=== PATIENT | female | born 1945 | race Caucasian/White ===

== ENCOUNTER 2017-09-04 10:40 | Inpatient (IN) | payer MEDICARE ==
[~2017-09-04] VITALS: Ht 185.4 cm; Wt 92.0 kg
[~2017-09-04 10:40] MED LIST: ALBU8.5H8 IH; BUDE10.2 IH; CYAN100T PO; DIPH25TA18 PO; DIVA-76 PO; FOLI1TAB15 PO; FURO20TA4 PO; METO-408 PO; POTA10CA44 PO; WARF-57 PO; WARF2.5T85 PO
[2017-09-04 11:34] LABS: APPEARANCE,URINE Clear (CLEAR); BILIRUBIN,URINE Negative (NEGATIVE); COLOR,URINE Yellow (YELLOW); GLUCOSE, URINE (UA) Negative (NEGATIVE); KETONES,URINE Negative (NEGATIVE); LEUKOCYTE ESTERASE ,URINE Large (NEGATIVE); NITRATE,URINE Negative (NEGATIVE); OCCULT BLOOD,URINE Trace (NEGATIVE); PH,URINE 7.5 (5.0-8.0); PROTEIN,URINE Negative (NEGATIVE); UROBILINOGEN,URINE 0.2 mg/dL (0.2-1.0)
[2017-09-04 11:40] LABS: CREATININE 1.2 mg/dL (0.5-1.5); POTASSIUM 3.5 mmol/L (3.5-5.1)
[2017-09-04 11:45] LABS: ALBUMIN 3.2 g/dL (3.5-5.0); BASOPHILS % (AUTO) 1.5 % (0.0-5.0); BILIRUBIN,TOTAL 0.8 mg/dL (0.2-1.0); HEMATOCRIT 24.4 % (36-48); LYMPHOCYTES % (AUTO) 17.9 % (21.0-51.0); MEAN CORPUSCULAR HEMOGLOBIN 22.7 pg (27.0-33.0); MEAN CORPUSCULAR HGB CONC 32.1 g/dL (32.0-36.0); MEAN CORPUSCULAR VOLUME 70.7 fL (79-99); MONOCYTES % (AUTO) 16.1 % (3.0-13.0); NEUTROPHILS % (AUTO) 62.5 % (40.0-77.0); NUCLEATED RED BLOOD CELLS 0.2 % (0.0-0.19); PLATELET COUNT (AUTO) 91 K/uL (130-400); RED BLOOD CELL COUNT(AUTO) 3.45 MIL/uL (4.00-5.50); RED CELL DISTRIBUTION WIDTH 18.2 % (11.0-15.5); TOTAL PROTEIN, SERUM 6.2 g/dL (6.0-8.3); WHITE BLOOD COUNT (AUTO) 2.1 K/uL (4.8-10.8)
[2017-09-04 11:58] LABS: INR 1.94 (0.85-1.15); PARTIAL THROMBOPLASTIN TIME 39.1 SEC (26.3-35.5); PROTHROMBIN TIME 20.1 SEC (9.6-11.6)
[2017-09-04 12:04] LABS: RBC,URINE 0-1 /HPF (0-1)
[2017-09-04 12:05] LABS: BACTERIA,URINE Few /HPF (None Seen); SQUAMOUS EPITHELIAL CELL,UR 0-2 /HPF (0-2)
[2017-09-04 12:07] LABS: CREATINE KINASE MB 0.9 ng/mL (0.5-3.6)
[2017-09-04 12:20] LABS: BAND NEUTROPHILS % (MANUAL) 1 % (0-2); LYMPHOCYTES % (MANUAL) 22 % (22-44); MAN.DIFF COMMENT-IMPRESSION MANUAL DIFFERENTIAL; MONOCYTES % (MANUAL) 11 % (2-9); SEGMENTED NEUTROPHILS % 66 % (40-70)
[2017-09-04 12:24] LABS: PLATELET MORPHOLOGY COMMENT DECREASED
[2017-09-04 12:26] LABS: B-TYPE NATRIURETIC PEPTIDE 105 pg/mL (0-100)
[2017-09-04] MEDS ORDERED: FUROSEMIDE 10 MG/ML 4ML VIAL ONE (13:12)
[2017-09-04] MEDS ORDERED: ACETAMINOPHEN 325 MG TAB PO PRN ×2 (15:15)
[2017-09-04] MEDS ORDERED: SODIUM CHLORIDE 0.9% 10 ML VIAL IVP SCH (15:15)
[2017-09-04] MEDS ORDERED: CEPHALEXIN 500 MG CAPSULE ONE (15:35)
[2017-09-04] MEDS ORDERED: LEVOFLOXACIN 500 MG/D5W 100 ML 100 ML IV SCH (16:00)
[2017-09-04] MEDS ORDERED: VANCOMYCIN 1GM+NS 250ML 250 ML IV SCH (16:00)
[2017-09-04] MEDS ORDERED: MORPHINE SULFATE 4 MG/1ML SYG IVP PRN ×2 (16:00)
[2017-09-04 18:00] VITALS: BP 128/69
[2017-09-04] MEDS ORDERED: IPRATROPIUM/ALBUTEROL SULFATE 3 ML SOLUTION IH SCH (18:00)
[2017-09-04] MEDS ORDERED: WARFARIN SODIUM 7.5 MG TAB PO SCH (19:15)
[2017-09-04] MEDS: IPRATROPIUM/ALBUTEROL SULFATE 3 ML SOLUTION IH SCH ×2 (19:19→23:44)
[2017-09-04 19:39] LABS: INR 1.87 (0.85-1.15); PROTHROMBIN TIME 19.4 SEC (9.6-11.6)
[2017-09-04 19:49] LABS: CREATINE KINASE MB 1.1 ng/mL (0.5-3.6); CREATINE KINASE, TOTAL 85 U/L (21-232); MYOGLOBIN 87 ng/mL (10-92); TROPONIN I < 0.04 ng/mL (0.00-0.06)
[2017-09-04 20:17] VITALS: BP 108/63
[2017-09-04] MEDS: DIVALPROEX SODIUM 250 MG TABLET.DR PO SCH (20:55)
[2017-09-04] MEDS: CEPHALEXIN 500 MG CAPSULE PO SCH (20:55)
[2017-09-04 23:38] VITALS: BP 120/66
[2017-09-05 04:00] VITALS: BP 124/67
[2017-09-05 05:01] LABS: INR 1.93 (0.85-1.15)
[2017-09-05 05:27] LABS: CREATINE KINASE MB 0.5 ng/mL (0.5-3.6); CREATINE KINASE, TOTAL 68 U/L (21-232); MYOGLOBIN 59 ng/mL (10-92); TROPONIN I < 0.04 ng/mL (0.00-0.06)
[2017-09-05 07:00] VITALS: BP 108/56
[2017-09-05] MEDS: IPRATROPIUM/ALBUTEROL SULFATE 3 ML SOLUTION IH SCH ×4 (07:29→23:03)
[2017-09-05] MEDS: CEPHALEXIN 500 MG CAPSULE PO SCH ×3 (07:56→19:25)
[2017-09-05] MEDS: FUROSEMIDE 10 MG/ML 4ML VIAL IVP SCH (07:56)
[2017-09-05] MEDS: DIVALPROEX SODIUM 250 MG TABLET.DR PO SCH ×2 (07:56→15:54)
[2017-09-05 11:00] VITALS: BP 111/65
[2017-09-05 16:00] VITALS: BP 114/67
[2017-09-05] MEDS ORDERED: WARFARIN SODIUM 5 MG TAB PO SCH (16:00)
[2017-09-05 19:26] VITALS: BP 121/65
[2017-09-06 03:53] LABS: HEMATOCRIT 21.5 % (36-48); MEAN CORPUSCULAR HEMOGLOBIN 23.7 pg (27.0-33.0); MEAN CORPUSCULAR HGB CONC 33.8 g/dL (32.0-36.0); MEAN CORPUSCULAR VOLUME 70.1 fL (79-99); PLATELET COUNT (AUTO) 96 K/uL (130-400); RED BLOOD CELL COUNT(AUTO) 3.07 MIL/uL (4.00-5.50); RED CELL DISTRIBUTION WIDTH 18.2 % (11.0-15.5); WHITE BLOOD COUNT (AUTO) 2.8 K/uL (4.8-10.8)
[2017-09-06 04:00] VITALS: BP 134/76
[2017-09-06 04:02] LABS: INR 2.39 (0.85-1.15); PARTIAL THROMBOPLASTIN TIME 41.5 SEC (26.3-35.5); PROTHROMBIN TIME 24.7 SEC (9.6-11.6)
[2017-09-06 04:06] LABS: ALBUMIN 2.9 g/dL (3.5-5.0); BILIRUBIN,TOTAL 0.9 mg/dL (0.2-1.0); CREATININE 1.2 mg/dL (0.5-1.5); POTASSIUM 3.2 mmol/L (3.5-5.1); TOTAL PROTEIN, SERUM 5.8 g/dL (6.0-8.3)
[2017-09-06 04:09] LABS: B-TYPE NATRIURETIC PEPTIDE 132 pg/mL (0-100)
[2017-09-06 05:00] VITALS: BP 132/76
[2017-09-06] MEDS: IPRATROPIUM/ALBUTEROL SULFATE 3 ML SOLUTION IH SCH ×4 (06:05→23:17)
[2017-09-06 07:00] VITALS: BP 127/69
[2017-09-06] MEDS: FUROSEMIDE 10 MG/ML 4ML VIAL IVP SCH (08:53)
[2017-09-06] MEDS: DIVALPROEX SODIUM 250 MG TABLET.DR PO SCH ×2 (08:53→17:08)
[2017-09-06] MEDS: CEPHALEXIN 500 MG CAPSULE PO SCH ×3 (08:53→19:59)
[2017-09-06 11:00] VITALS: BP 103/57
[2017-09-06 16:00] VITALS: BP 110/55
[2017-09-06] MEDS ORDERED: GUAIFENESIN-DM 200/20 MG 10 ML PO PRN (16:45)
[2017-09-06] MEDS: POTASSIUM CHLORIDE 10% ELIXIR 20 MEQ/15 ML UDCUP PO SCH ×2 (17:09→20:00)
[2017-09-06 19:57] VITALS: BP 113/62
[2017-09-07 00:24] VITALS: BP 140/60
[2017-09-07 04:14] VITALS: BP 131/74
[2017-09-07] MEDS: IPRATROPIUM/ALBUTEROL SULFATE 3 ML SOLUTION IH SCH ×2 (07:11→12:05)
[2017-09-07] MEDS: CEPHALEXIN 500 MG CAPSULE PO SCH ×2 (08:34→14:46)
[2017-09-07] MEDS: FUROSEMIDE 10 MG/ML 4ML VIAL IVP SCH (08:34)
[2017-09-07] MEDS: DIVALPROEX SODIUM 250 MG TABLET.DR PO SCH ×2 (08:34→17:30)
[2017-09-07] MEDS: POTASSIUM CHLORIDE 10% ELIXIR 20 MEQ/15 ML UDCUP PO SCH (08:39)
[2017-09-07] MEDS ORDERED: POTASSIUM CHLORIDE 20 MEQ ERTAB PO SCH (09:00)
[2017-09-07 09:01] VITALS: BP 128/67
[2017-09-07] MEDS ORDERED: PHARMACY COMMUNICATION MISC SCH (10:30)
[2017-09-07] MEDS ORDERED: FE F1CAP8 PO (11:29)
[2017-09-07] MEDS ORDERED: FURO40TA7 PO (11:29)
[2017-09-07] MEDS ORDERED: WARF-57 PO (11:29)
[2017-09-07] MEDS ORDERED: WARF2.5T85 PO (11:29)
[2017-09-07 12:10] VITALS: BP 124/55
[2017-09-07] MEDS ORDERED: WARFARIN SODIUM 5 MG TAB PO SCH (16:00)
[2017-09-07 17:10] VITALS: BP 116/64
[2017-09-08] MEDS ORDERED: WARFARIN SODIUM 5 MG TAB PO SCH (16:00)
[2017-09-08] MEDS ORDERED: PHARMACY COMMUNICATION MISC SCH (16:00)
[2017-09-09] MEDS ORDERED: WARFARIN SODIUM 5 MG TAB PO SCH (16:00)
[2017-09-10] MEDS ORDERED: WARFARIN SODIUM 2.5 MG TAB PO SCH (16:00)
== END 2017-09-07 18:49 | disposition home or self-care (01) | DRG 602 ==
LOC: EDH 10:40 → EDHIP 14:48 → 2AH 17:34
PROVIDERS: ADMIT Internal Medicine Infectious Disease; ATTEND Internal Medicine Infectious Disease
DX: L03.115 Cellulitis of right lower limb (principal); I50.43 Acute on chronic combined systolic (congestive) and diastolic (congestive) heart failure; D61.818 Other pancytopenia; I27.29 Other secondary pulmonary hypertension; G40.909 Epilepsy, unspecified, not intractable, without status epilepticus; I42.0 Dilated cardiomyopathy; I48.2 Chronic atrial fibrillation; I08.2 Rheumatic disorders of both aortic and tricuspid valves; D46.9 Myelodysplastic syndrome, unspecified; D50.9 Iron deficiency anemia, unspecified; I11.0 Hypertensive heart disease with heart failure; L03.116 Cellulitis of left lower limb; I50.810 Right heart failure, unspecified; E87.6 Hypokalemia; G47.33 Obstructive sleep apnea (adult) (pediatric); I87.2 Venous insufficiency (chronic) (peripheral); J44.9 Chronic obstructive pulmonary disease, unspecified; R79.1 Abnormal coagulation profile; Z79.01 Long term (current) use of anticoagulants; Z90.710 Acquired absence of both cervix and uterus; Z91.041 Radiographic dye allergy status; Z95.0 Presence of cardiac pacemaker; Z95.1 Presence of aortocoronary bypass graft; Z95.2 Presence of prosthetic heart valve; Z88.8 Allergy status to other drugs, medicaments and biological substances; Z91.011 Allergy to milk products
CPT/HCPCS: 36415; 71045; 80053; 80164; 81001; 82550; 82553; 82728; 83540; 83550; 83735; 83874; 83880; 84484; 85025; 85027; 85610; 85730; 93005; 93306; 93970; 94640; 94664; J1940

== ENCOUNTER → 2018-01-07 | Outpatient (CLI) | payer MEDICARE ==
[~2018-01-07] MED LIST changes: -DIPH25TA18 PO; +FE F1CAP8 PO; -FURO20TA4 PO; +FURO40TA7 PO; +LETR2.5T6 PO; -METO-408 PO; +METO2.5T2 PO; +MIDO5TAB PO; +SPIR25TA6 PO
[2018-01-07 09:02] LABS: BASOPHILS % (AUTO) 1.9 % (0.0-5.0); HEMATOCRIT 27.5 % (36-48); LYMPHOCYTES % (AUTO) 10.3 % (21.0-51.0); MEAN CORPUSCULAR HEMOGLOBIN 31.8 pg (27.0-33.0); MEAN CORPUSCULAR HGB CONC 33.1 g/dL (32.0-36.0); MEAN CORPUSCULAR VOLUME 96.1 fL (79-99); NEUTROPHILS % (AUTO) 70.8 % (40.0-77.0); PLATELET COUNT (AUTO) 99 K/uL (130-400); RED BLOOD CELL COUNT(AUTO) 2.86 MIL/uL (4.00-5.50); RED CELL DISTRIBUTION WIDTH 16.5 % (11.0-15.5); WHITE BLOOD COUNT (AUTO) 2.8 K/uL (4.8-10.8)
[2018-01-07 09:15] LABS: ALBUMIN 3.1 g/dL (3.5-5.0); BILIRUBIN,TOTAL 0.8 mg/dL (0.2-1.0); CREATININE 1.4 mg/dL (0.5-1.5); POTASSIUM 3.6 mmol/L (3.5-5.1); TOTAL PROTEIN, SERUM 5.8 g/dL (6.0-8.3)
[2018-01-07 10:12] LABS: LYMPHOCYTES % (MANUAL) 10 % (22-44); MAN.DIFF COMMENT-IMPRESSION MANUAL DIFFERENTIAL; MONOCYTES % (MANUAL) 7 % (2-9); PLATELET MORPHOLOGY COMMENT DECREASED; SEGMENTED NEUTROPHILS % 83 % (40-70)
== END | disposition home or self-care (01) ==
LOC: RAH 08:20
PROVIDERS: ATTEND Internal Medicine Cardiovascular Disease
DX: I42.0 Dilated cardiomyopathy (principal); I34.2 Nonrheumatic mitral (valve) stenosis; I51.7 Cardiomegaly; F31.9 Bipolar disorder, unspecified; Z95.2 Presence of prosthetic heart valve
CPT/HCPCS: 36415; 71046; 80053; 83735; 85025

== ENCOUNTER 2018-01-08 14:46 | Emergency (ER) | payer MEDICARE ==
[~2018-01-08 14:46] MED LIST changes: -LETR2.5T6 PO; -METO2.5T2 PO; -MIDO5TAB PO; -SPIR25TA6 PO
[2018-01-08 15:13] LABS: BASOPHILS % (AUTO) 1.4 % (0.0-5.0); EOSINOPHILS % (AUTO) 4.7 % (0.0-8.0); HEMATOCRIT 29.8 % (36-48); LYMPHOCYTES % (AUTO) 14.1 % (21.0-51.0); MEAN CORPUSCULAR HEMOGLOBIN 31.4 pg (27.0-33.0); MEAN CORPUSCULAR HGB CONC 32.9 g/dL (32.0-36.0); MEAN CORPUSCULAR VOLUME 95.5 fL (79-99); MONOCYTES % (AUTO) 11.6 % (3.0-13.0); NEUTROPHILS % (AUTO) 68.2 % (40.0-77.0); PLATELET COUNT (AUTO) 101 K/uL (130-400); RED BLOOD CELL COUNT(AUTO) 3.12 MIL/uL (4.00-5.50); RED CELL DISTRIBUTION WIDTH 16.4 % (11.0-15.5); WHITE BLOOD COUNT (AUTO) 3.3 K/uL (4.8-10.8)
[2018-01-08 15:28] LABS: CREATININE 1.5 mg/dL (0.5-1.5); POTASSIUM 3.8 mmol/L (3.5-5.1)
[2018-01-08 15:29] LABS: INR 1.21 (0.85-1.15); PARTIAL THROMBOPLASTIN TIME 33.8 SEC (26.3-35.5); PROTHROMBIN TIME 12.7 SEC (9.6-11.6)
[2018-01-08 15:32] LABS: ALBUMIN 3.3 g/dL (3.5-5.0); TOTAL PROTEIN, SERUM 6.2 g/dL (6.0-8.3)
[2018-01-08 15:43] LABS: B-TYPE NATRIURETIC PEPTIDE 245 pg/mL (0-100)
[2018-01-08 15:45] LABS: CREATINE KINASE MB 0.8 ng/mL (0.5-3.6); CREATINE KINASE, TOTAL 53 U/L (21-232); MYOGLOBIN 58 ng/mL (10-92); TROPONIN I < 0.04 ng/mL (0.00-0.06)
[2018-01-08 17:52] LABS: BILIRUBIN,URINE Negative (NEGATIVE); COLOR,URINE Dark Yellow (YELLOW); GLUCOSE, URINE (UA) Negative (NEGATIVE); KETONES,URINE Trace mg/dL (NEGATIVE); LEUKOCYTE ESTERASE ,URINE Moderate (NEGATIVE); NITRATE,URINE Negative (NEGATIVE); OCCULT BLOOD,URINE Negative (NEGATIVE); PROTEIN,URINE POS 1+ (NEGATIVE)
[2018-01-08 17:54] LABS: APPEARANCE,URINE CLEAR (CLEAR)
[2018-01-08 18:00] LABS: BACTERIA,URINE Few /HPF (None Seen); RBC,URINE None Seen /HPF (0-1); SQUAMOUS EPITHELIAL CELL,UR 0-2 /HPF (0-2)
== END 2018-01-08 19:06 | disposition home or self-care (01) ==
LOC: EDH 14:46
DX: R60.0 Localized edema (principal); I48.91 Unspecified atrial fibrillation; I25.10 Atherosclerotic heart disease of native coronary artery without angina pectoris; J44.9 Chronic obstructive pulmonary disease, unspecified; G40.909 Epilepsy, unspecified, not intractable, without status epilepticus; Z95.0 Presence of cardiac pacemaker; Z95.1 Presence of aortocoronary bypass graft; Z90.710 Acquired absence of both cervix and uterus; Z88.8 Allergy status to other drugs, medicaments and biological substances; Z79.899 Other long term (current) drug therapy
CPT/HCPCS: 36415; 80053; 81001; 82550; 82553; 83874; 83880; 84484; 85025; 85610; 85730; 93005

== ENCOUNTER 2018-01-11 14:00 | Inpatient (IN) | payer MEDICARE ==
[2018-01-11] VITALS (9 sets, daily range): BP systolic 104–120; BP diastolic 48–66
[~2018-01-11] VITALS: Ht 180.3 cm; Wt 85.1 kg
[2018-01-11] MEDS ORDERED: NITROGLYCERIN 0.4 MG SL TAB SL PRN (14:45)
[2018-01-11] MEDS ORDERED: LIDOCAINE HCL-MPF 1% 2ML VIAL IVP PRN (14:45)
[2018-01-11] MEDS ORDERED: ONDANSETRON HCL 4 MG/2 ML VIAL IVP PRN (14:45)
[2018-01-11] MEDS ORDERED: ACETAMINOPHEN 325 MG TAB PO PRN ×2 (14:45)
[2018-01-11] MEDS ORDERED: POTASSIUM CHLORIDE 10% ELIXIR 20 MEQ/15 ML UDCUP PO PRN (14:45)
[2018-01-11] MEDS ORDERED: POTASSIUM CHLORIDE 20MEQ/100ML 100 ML IV PRN (14:45)
[2018-01-11] MEDS ORDERED: CLONIDINE HCL 0.1 MG TABLET PO PRN (14:45)
[2018-01-11] MEDS ORDERED: ZOLPIDEM TARTRATE 5 MG TAB PO PRN (14:45)
[2018-01-11 15:28] LABS: MEAN CORPUSCULAR HEMOGLOBIN 31.5 pg (27.0-33.0); MEAN CORPUSCULAR HGB CONC 32.9 g/dL (32.0-36.0); MEAN CORPUSCULAR VOLUME 95.7 fL (79-99); PLATELET COUNT (AUTO) 108 K/uL (130-400); RED BLOOD CELL COUNT(AUTO) 2.92 MIL/uL (4.00-5.50); RED CELL DISTRIBUTION WIDTH 15.7 % (11.0-15.5); WHITE BLOOD COUNT (AUTO) 2.9 K/uL (4.8-10.8)
[2018-01-11 15:44] LABS: BILIRUBIN,TOTAL 0.9 mg/dL (0.2-1.0); CREATININE 1.6 mg/dL (0.5-1.5); MAGNESIUM 1.9 mg/dL (1.80-2.40); TOTAL PROTEIN, SERUM 5.8 g/dL (6.0-8.3)
[2018-01-11 15:45] LABS: INR 1.24 (0.85-1.15)
[2018-01-11 15:59] LABS: B-TYPE NATRIURETIC PEPTIDE 142 pg/mL (0-100)
[2018-01-11] MEDS ORDERED: SPIR25TA6 PO (16:25)
[2018-01-11] MEDS ORDERED: METO2.5T2 PO (16:25)
[2018-01-11] MEDS ORDERED: MIDO5TAB PO (16:25)
[2018-01-11] MEDS ORDERED: LETR2.5T6 PO (16:25)
[2018-01-11] MEDS: FUROSEMIDE 10 MG/ML 4ML VIAL IV SCH ×2 (16:27→23:24)
[2018-01-11 16:42] LABS: BASOPHILS % (MANUAL) 1 % (0-2); EOSINOPHILS % (MANUAL) 2 % (1-6); LYMPHOCYTES % (MANUAL) 6 % (22-44); MONOCYTES % (MANUAL) 12 % (2-9); REACTIVE LYMPHOCYTES 3 % (0-0); SEGMENTED NEUTROPHILS % 76 % (40-70)
[2018-01-11 16:54] LABS: MAN.DIFF COMMENT-IMPRESSION MANUAL DIFFERENTIAL
[2018-01-12 03:50] LABS: CREATININE 1.5 mg/dL (0.5-1.5); MAGNESIUM 1.9 mg/dL (1.80-2.40); POTASSIUM 3.9 mmol/L (3.5-5.1)
[2018-01-12 04:00] VITALS: BP 114/67
[2018-01-12] MEDS: FUROSEMIDE 10 MG/ML 4ML VIAL IV SCH ×3 (06:28→22:25)
[2018-01-12 08:07] VITALS: BP 120/64
[2018-01-12] MEDS ORDERED: HEPARIN 25000 UNITS/250 ML D5W 250 ML IV SCH (09:15)
[2018-01-12 09:33] LABS: BASOPHILS % (AUTO) 2.4 % (0.0-5.0); EOSINOPHILS % (AUTO) 5.2 % (0.0-8.0); HEMATOCRIT 28.1 % (36-48); LYMPHOCYTES % (AUTO) 12.6 % (21.0-51.0); MEAN CORPUSCULAR HGB CONC 32.8 g/dL (32.0-36.0); MEAN CORPUSCULAR VOLUME 94.4 fL (79-99); MONOCYTES % (AUTO) 15.9 % (3.0-13.0); NEUTROPHILS % (AUTO) 63.9 % (40.0-77.0); PLATELET COUNT (AUTO) 91 K/uL (130-400); RED BLOOD CELL COUNT(AUTO) 2.98 MIL/uL (4.00-5.50); RED CELL DISTRIBUTION WIDTH 15.2 % (11.0-15.5); WHITE BLOOD COUNT (AUTO) 2.7 K/uL (4.8-10.8)
[2018-01-12 09:51] LABS: INR 1.25 (0.85-1.15); PROTHROMBIN TIME 13.1 SEC (9.6-11.6)
[2018-01-12] MEDS ORDERED: WARFARIN SODIUM 10 MG TABLET PO ONE (10:15)
[2018-01-12] MEDS ORDERED: METOLAZONE 2.5 MG TABLET PO ONE (10:15)
[2018-01-12] MEDS ORDERED: FUROSEMIDE 10 MG/ML 4ML VIAL IV ONE (10:15)
[2018-01-12 11:26] VITALS: BP 118/68
[2018-01-12 16:00] VITALS: BP 119/67
[2018-01-12 17:02] LABS: INR 1.22 (0.85-1.15); PROTHROMBIN TIME 12.8 SEC (9.6-11.6)
[2018-01-12 17:33] LABS: PARTIAL THROMBOPLASTIN TIME > 120.0 SEC (26.3-35.5)
[2018-01-12 22:16] VITALS: BP 110/67
[2018-01-12] MEDS: SPIRONOLACTONE 25 MG TAB PO SCH (22:25)
[2018-01-12 22:52] LABS: INR 1.27 (0.85-1.15); PROTHROMBIN TIME 13.3 SEC (9.6-11.6)
[2018-01-12] MEDS: DIVALPROEX SODIUM 250 MG TABLET.DR PO SCH (23:29)
[2018-01-12 23:47] LABS: PARTIAL THROMBOPLASTIN TIME > 120.0 SEC (26.3-35.5)
[2018-01-12 23:53] VITALS: BP 108/57
[2018-01-13 03:27] LABS: BASOPHILS % (AUTO) 3.1 % (0.0-5.0); EOSINOPHILS % (AUTO) 5.5 % (0.0-8.0); LYMPHOCYTES % (AUTO) 17.8 % (21.0-51.0); MEAN CORPUSCULAR HEMOGLOBIN 31.7 pg (27.0-33.0); MEAN CORPUSCULAR HGB CONC 33.8 g/dL (32.0-36.0); MEAN CORPUSCULAR VOLUME 93.8 fL (79-99); MONOCYTES % (AUTO) 19.2 % (3.0-13.0); NEUTROPHILS % (AUTO) 54.4 % (40.0-77.0); PLATELET COUNT (AUTO) 97 K/uL (130-400); RED BLOOD CELL COUNT(AUTO) 2.88 MIL/uL (4.00-5.50); WHITE BLOOD COUNT (AUTO) 2.8 K/uL (4.8-10.8)
[2018-01-13 03:40] LABS: CREATININE 1.6 mg/dL (0.5-1.5); MAGNESIUM 1.7 mg/dL (1.80-2.40); POTASSIUM 3.3 mmol/L (3.5-5.1)
[2018-01-13 03:43] LABS: PROTHROMBIN TIME 13.6 SEC (9.6-11.6)
[2018-01-13 03:57] LABS: PARTIAL THROMBOPLASTIN TIME > 120.0 SEC (26.3-35.5)
[2018-01-13 04:24] VITALS: BP 117/59
[2018-01-13 04:25] LABS: BAND NEUTROPHILS % (MANUAL) 5 % (0-2); BASOPHILS % (MANUAL) 2 % (0-2); EOSINOPHILS % (MANUAL) 2 % (1-6); LYMPHOCYTES % (MANUAL) 13 % (22-44); MAN.DIFF COMMENT-IMPRESSION MANUAL DIFFERENTIAL; MONOCYTES % (MANUAL) 13 % (2-9); PLATELET MORPHOLOGY COMMENT DECREASED; SEGMENTED NEUTROPHILS % 65 % (40-70)
[2018-01-13] MEDS: POTASSIUM CHLORIDE 20 MEQ ERTAB PO PRN ×3 (04:26→08:38)
[2018-01-13] MEDS: FUROSEMIDE 10 MG/ML 4ML VIAL IV SCH ×3 (06:20→21:44)
[2018-01-13 07:00] VITALS: BP 118/61
[2018-01-13] MEDS ORDERED: MAGNESIUM 2GM PREMIX 50ML 50 ML IV SCH (07:45)
[2018-01-13] MEDS ORDERED: WARFARIN SODIUM 10 MG TABLET PO SCH (07:45)
[2018-01-13] MEDS: DIVALPROEX SODIUM 250 MG TABLET.DR PO SCH ×2 (08:37→21:44)
[2018-01-13] MEDS: SPIRONOLACTONE 25 MG TAB PO SCH ×2 (08:37→21:44)
[2018-01-13] MEDS: FUROSEMIDE 40 MG TABLET PO SCH ×2 (08:38→17:03)
[2018-01-13 11:00] VITALS: BP 112/65
[2018-01-13 16:00] VITALS: BP_SYST 117; BP_SYST 120; BP_DIAS 65; BP_DIAS 77
[2018-01-13 16:15] LABS: MAGNESIUM 2.1 mg/dL (1.80-2.40); POTASSIUM 4.4 mmol/L (3.5-5.1)
[2018-01-13 20:00] VITALS: BP 111/60
[2018-01-13 23:48] VITALS: BP 110/88
[2018-01-14 03:40] VITALS: BP 120/70
[2018-01-14 04:15] LABS: INR 1.85 (0.85-1.15); PARTIAL THROMBOPLASTIN TIME 38.6 SEC (26.3-35.5); PROTHROMBIN TIME 19.2 SEC (9.6-11.6)
[2018-01-14 04:21] LABS: CREATININE 1.8 mg/dL (0.5-1.5); MAGNESIUM 2.1 mg/dL (1.80-2.40); POTASSIUM 3.7 mmol/L (3.5-5.1)
[2018-01-14] MEDS: POTASSIUM CHLORIDE 20 MEQ ERTAB PO PRN ×2 (06:15→09:17)
[2018-01-14] MEDS: FUROSEMIDE 10 MG/ML 4ML VIAL IV SCH (06:15)
[2018-01-14 07:00] VITALS: BP 111/61
[2018-01-14] MEDS: DIVALPROEX SODIUM 250 MG TABLET.DR PO SCH (09:14)
[2018-01-14] MEDS: SPIRONOLACTONE 25 MG TAB PO SCH (09:14)
[2018-01-14] MEDS: FUROSEMIDE 40 MG TABLET PO SCH (09:14)
== END 2018-01-14 11:25 | disposition home or self-care (01) | DRG 292 ==
LOC: EDH 14:00 → 2BH 14:20
PROVIDERS: ADMIT Internal Medicine; ATTEND Internal Medicine
DX: I50.43 Acute on chronic combined systolic (congestive) and diastolic (congestive) heart failure (principal); E46 Unspecified protein-calorie malnutrition; E87.70 Fluid overload, unspecified; E66.9 Obesity, unspecified; E86.0 Dehydration; I05.2 Rheumatic mitral stenosis with insufficiency; I27.20 Pulmonary hypertension, unspecified; I48.2 Chronic atrial fibrillation; I87.2 Venous insufficiency (chronic) (peripheral); I25.10 Atherosclerotic heart disease of native coronary artery without angina pectoris; G47.30 Sleep apnea, unspecified; J44.9 Chronic obstructive pulmonary disease, unspecified; M54.17 Radiculopathy, lumbosacral region; N18.9 Chronic kidney disease, unspecified; Z79.01 Long term (current) use of anticoagulants; Z91.041 Radiographic dye allergy status; Z91.19 Patient's noncompliance with other medical treatment and regimen; Z95.0 Presence of cardiac pacemaker; Z95.2 Presence of prosthetic heart valve; Z68.26 Body mass index [BMI] 26.0-26.9, adult; Z95.1 Presence of aortocoronary bypass graft; Z90.710 Acquired absence of both cervix and uterus; Z85.3 Personal history of malignant neoplasm of breast; Z79.899 Other long term (current) drug therapy
CPT/HCPCS: 36415; 71046; 80048; 80053; 81001; 82550; 82553; 82948; 83735; 83874; 83880; 84132; 84484; 85025; 85027; 85610; 85730; 93005; 93306; J1644; J1940; J3475; Q2038

== ENCOUNTER 2019-08-31 07:40 | Day surgery (SDC) | payer MEDICARE ==
--- NOTE | 2019-08-30 09:57 | NUR ---
allergies Maday MOSELEY notified that patient allergic to Iodine, no further orders given.
[2019-08-31] VITALS (8 sets, daily range): BP systolic 107–126; BP diastolic 54–69
[~2019-08-31 07:40] MED LIST changes: -ALBU8.5H8 IH; -BUDE10.2 IH; -CYAN100T PO; -FOLI1TAB15 PO; +FURO40TA5 PO; -FURO40TA7 PO; +LETR2.5T7 PO; +MIDO5TAB4 PO; +SPIR25TA6 PO; -WARF2.5T85 PO
[2019-08-31 08:08] LABS: BASOPHILS % (AUTO) 0.9 % (0.0-5.0); EOSINOPHILS % (AUTO) 1.2 % (0.0-8.0); HEMATOCRIT 35.8 % (36-48); LYMPHOCYTES % (AUTO) 12.4 % (21.0-51.0); MEAN CORPUSCULAR HEMOGLOBIN 28.4 pg (27.0-33.0); MEAN CORPUSCULAR HGB CONC 32.4 g/dL (32.0-36.0); MEAN CORPUSCULAR VOLUME 87.5 fL (79-99); MONOCYTES % (AUTO) 16.3 % (3.0-13.0); NEUTROPHILS % (AUTO) 69.2 % (40.0-77.0); PLATELET COUNT (AUTO) 112 K/uL (130-400); RED BLOOD CELL COUNT(AUTO) 4.09 MIL/uL (4.00-5.50); RED CELL DISTRIBUTION WIDTH 14.6 % (11.0-15.5); WHITE BLOOD COUNT (AUTO) 3.4 K/uL (4.8-10.8)
[2019-08-31 08:15] LABS: POTASSIUM 3.9 mmol/L (3.5-5.1)
[2019-08-31 08:37] LABS: INR 1.33 (0.85-1.15); PARTIAL THROMBOPLASTIN TIME 36.5 SEC (26.3-35.5); PROTHROMBIN TIME 14.2 SEC (9.6-11.6)
[2019-08-31] MEDS ORDERED: SODIUM CHLORIDE 0.9% 1000ML 1,000 ML IV ONE (08:39)
[2019-08-31] MEDS ORDERED: LIDOCAINE HCL 1% MDV 50ML VIAL ONE (11:56)
[2019-08-31] MEDS ORDERED: CEFAZOLIN SODIUM 1 GM VIAL ONE ×2 (11:56→19:50)
[2019-08-31] MEDS ORDERED: BUPIVACAINE/PF 0.25% 30ML VIAL IJ ONE (11:56)
[2019-08-31] MEDS ORDERED: IODIXANOL 320 MG/ML 100 ML VIAL ONE (11:56)
[2019-08-31] MEDS ORDERED: MIDAZOLAM HCL 1 MG/ML 2ML VIAL ONE ×2 (11:58→12:21)
[2019-08-31] MEDS ORDERED: MEPERIDINE-PF 25 MG/ML SYG ONE ×3 (11:58→13:38)
[2019-08-31] MEDS ORDERED: THROMBIN-JMI 5000 UNIT/VIAL TP ONE (13:09)
[2019-08-31] MEDS ORDERED: ONDANSETRON HCL 4 MG/2 ML VIAL IV PRN (14:15)
[2019-08-31] MEDS ORDERED: ACETAMINOPHEN-CODEINE 300/30MG TAB PO PRN ×2 (14:15)
[2019-08-31] MEDS ORDERED: CEFAZOLIN SODIUM 1 GM VIAL IVP SCH (20:00)
[2019-08-31] MEDS ORDERED: ACETAMINOPHEN 325 MG TAB ONE (20:15)
[2019-09-06] MEDS ORDERED: Midodrine Hcl PO (14:41)
[2019-09-06] MEDS ORDERED: FURO20TA4 PO (14:49)
[2019-09-06] MEDS ORDERED: SPIR25TA6 PO (14:49)
[2019-09-06] MEDS ORDERED: FURO40TA5 PO (14:49)
== END 2019-08-31 22:20 | disposition home or self-care (01) ==
LOC: DAH 07:40
PROVIDERS: ATTEND Internal Medicine Cardiovascular Disease
DX: T82.118A Breakdown (mechanical) of other cardiac electronic device, initial encounter (principal); J44.9 Chronic obstructive pulmonary disease, unspecified; G47.33 Obstructive sleep apnea (adult) (pediatric); M54.17 Radiculopathy, lumbosacral region; I48.20 Chronic atrial fibrillation, unspecified; Z88.5 Allergy status to narcotic agent; Z79.01 Long term (current) use of anticoagulants; Z79.899 Other long term (current) drug therapy; I35.0 Nonrheumatic aortic (valve) stenosis; Y83.8 Other surgical procedures as the cause of abnormal reaction of the patient, or of later complication, without mention of misadventure at the time of the procedure
CPT/HCPCS: 33216; 36415; 80048; 85025; 85610; 85730; 93005; 93306; A4215; A4216; A4221; A4222; A4223 ×3; A4606; A4663; C1894; C1898; J0690; J2175 ×3; J2250 ×2; J3490 ×3; J7030; 99156; 99157; Q9967

== ENCOUNTER 2019-09-01 20:44 | Inpatient (IN) | payer MEDICARE ==
[~2019-09-01] VITALS: Ht 180.3 cm; Wt 88.0 kg
[2019-09-01 21:24] LABS: BASOPHILS % (AUTO) 0.5 % (0.0-5.0); EOSINOPHILS % (AUTO) 0.7 % (0.0-8.0); HEMATOCRIT 34.5 % (36-48); LYMPHOCYTES % (AUTO) 8.9 % (21.0-51.0); MEAN CORPUSCULAR HEMOGLOBIN 28.6 pg (27.0-33.0); MEAN CORPUSCULAR VOLUME 86.5 fL (79-99); MONOCYTES % (AUTO) 17.2 % (3.0-13.0); NEUTROPHILS % (AUTO) 72.5 % (40.0-77.0); PLATELET COUNT (AUTO) 120 K/uL (130-400); RED BLOOD CELL COUNT(AUTO) 3.99 MIL/uL (4.00-5.50); RED CELL DISTRIBUTION WIDTH 14.5 % (11.0-15.5); WHITE BLOOD COUNT (AUTO) 5.6 K/uL (4.8-10.8)
[2019-09-01 21:39] LABS: CREATININE 1.9 mg/dL (0.5-1.5)
[2019-09-01 21:44] LABS: BILIRUBIN,TOTAL 1.5 mg/dL (0.2-1.0); TOTAL PROTEIN, SERUM 7.2 g/dL (6.0-8.3)
[2019-09-01 21:47] LABS: B-TYPE NATRIURETIC PEPTIDE 101 pg/mL (0-100)
[2019-09-01 21:57] LABS: INR 1.3 (0.85-1.15); PARTIAL THROMBOPLASTIN TIME 38.6 SEC (26.3-35.5); PROTHROMBIN TIME 13.9 SEC (9.6-11.6)
[2019-09-01] MEDS ORDERED: ACETAMINOPHEN EXTRA STRENGTH 500 MG TABLET ONE (22:23)
[2019-09-01 22:33] LABS: APPEARANCE,URINE Clear (CLEAR); BILIRUBIN,URINE Negative (NEGATIVE); COLOR,URINE Yellow (YELLOW); GLUCOSE, URINE (UA) Negative (NEGATIVE); KETONES,URINE Negative (NEGATIVE); LEUKOCYTE ESTERASE ,URINE Trace (NEGATIVE); NITRATE,URINE Negative (NEGATIVE); OCCULT BLOOD,URINE Negative (NEGATIVE); PH,URINE 5.5 (5.0-8.0); PROTEIN,URINE Negative (NEGATIVE)
[2019-09-01 22:43] LABS: BACTERIA,URINE None Seen /HPF (None Seen); RBC,URINE None Seen /HPF (0-1); WBC,URINE 0-1 /HPF (0-1)
[2019-09-02] MEDS ORDERED: ONDANSETRON HCL 4 MG/2 ML VIAL IV PRN (00:45)
[2019-09-02] MEDS ORDERED: KETOROLAC TROMETHAMINE 15MG/ML IV PRN (00:45)
[2019-09-02] MEDS: CLINDAMYCIN 600 MG/D5% WATER 50 ML IV SCH ×4 (00:45→17:46)
[2019-09-02] MEDS ORDERED: ACETAMINOPHEN 325 MG TAB PO PRN (00:45)
[2019-09-02] MEDS: NITROGLYCERIN 1GM/1 INCH PACKET TD SCH ×2 (00:45→09:41)
[2019-09-02] MEDS ORDERED: HYDRALAZINE HCL 20 MG/ML VIAL IV PRN (01:00)
[2019-09-02] MEDS ORDERED: NITROGLYCERIN 1GM/1 INCH PACKET TD ONE (01:03)
[2019-09-02] MEDS ORDERED: KETOROLAC TROMETHAMINE 15MG/ML ONE (01:27)
[2019-09-02] MEDS ORDERED: CLINDAMYCIN 600 MG/D5% WATER 50 ML IV ONE (01:46)
[2019-09-02 02:50] VITALS: BP 120/62
[2019-09-02 05:11] LABS: BASOPHILS % (AUTO) 0.4 % (0.0-5.0); EOSINOPHILS % (AUTO) 0.7 % (0.0-8.0); HEMATOCRIT 31.2 % (36-48); LYMPHOCYTES % (AUTO) 10.7 % (21.0-51.0); MEAN CORPUSCULAR HEMOGLOBIN 28.9 pg (27.0-33.0); MEAN CORPUSCULAR VOLUME 87.6 fL (79-99); MONOCYTES % (AUTO) 17.9 % (3.0-13.0); NEUTROPHILS % (AUTO) 70.1 % (40.0-77.0); PLATELET COUNT (AUTO) 106 K/uL (130-400); RED BLOOD CELL COUNT(AUTO) 3.56 MIL/uL (4.00-5.50); RED CELL DISTRIBUTION WIDTH 14.6 % (11.0-15.5); WHITE BLOOD COUNT (AUTO) 4.6 K/uL (4.8-10.8)
[2019-09-02 05:43] LABS: ALBUMIN 3.4 g/dL (3.5-5.0); BILIRUBIN,TOTAL 1.6 mg/dL (0.2-1.0); POTASSIUM 3.7 mmol/L (3.5-5.1); TOTAL PROTEIN, SERUM 6.4 g/dL (6.0-8.3); TROPONIN I 0.06 ng/mL (0.00-0.06)
[2019-09-02 06:13] LABS: ERYTHROCYTE SEDIMENTATION RATE 5 MM/HR (0-30)
--- NOTE | 2019-09-02 07:30 | NUR ---
ROUNDING PATIENT IS AAOX3. AMBULATED PATIENT TO BATHROOM. STEADY GAIT JUST NEEDS HELP GETTING OUT OF BED. PATIENT HAS DRESSING TO LEFT UPPER CHEST FROM PACEMAKER LEAD REPLACEMENT YESTERDAY OUTPATIENT, SITE APPEARS ECCHYMOTIC AND TENDER TO TOUCH. DENIES HAVING ANY CHESTPAIN. HAS IV TO RAC 20G SALINE LOCKED.
[2019-09-02 08:40] VITALS: BP 109/56
[2019-09-02] MEDS ORDERED: ASPIRIN 81 MG EC TAB PO SCH (09:00)
[2019-09-02] MEDS: FAMOTIDINE/PF 20 MG/2 ML VIAL IV SCH (09:45)
--- NOTE | 2019-09-02 10:30 | NUR ---
DR OFELIA GILBERT IN ROOM ROUNDING ON PATIENT.
[2019-09-02] MEDS ORDERED: ENOXAPARIN SODIUM 80 MG/0.8 ML SQ SCH (11:30)
--- NOTE | 2019-09-02 11:30 | NUR ---
REPORT RECEIVED FROM LANDEN RN , PT. NOW RECEIVED IN ROOM 228. AWAKE, ALERT AND VOICES NO C/O AT THIS TIME. 20G SALINE LOCK IN PLACE TO RT. AC. WELL SECURED.PRESSURE DRESSING NOW APPLIED TO LT. UPPER CHEST. PACEMAKER LEADS PACEMAKER LEADSREPLACED YESTERDAY AND HAD SOME SWELLING AND BRUISING.
--- NOTE | 2019-09-02 11:30 | NUR ---
TRANSFER TO ROOM 228 REPORT GIVEN TO CLAUDIA ALEXANDER. PATIENT BEING TRANSFERRED TO COVID UNIT. PATIENT HAS BEEN EXPOSED TO POSITIVE COVID PEOPLE AT [facility].
[2019-09-02] MEDS ORDERED: WARFARIN SODIUM 7.5 MG TAB PO SCH (12:15)
[2019-09-02 12:30] VITALS: BP 132/63
--- NOTE | 2019-09-02 12:30 | NUR ---
RESP. PCR AND COVID TEST ALSO DONE AND SENT TO LAB.
--- NOTE | 2019-09-02 13:00 | NUR ---
ASST. TO BATHROOM FOR A VOID AND STATES HAD, A BM THIS AM.
--- NOTE | 2019-09-02 15:02 | NUR ---
REPORT GIVEN TO JAYNE ALEXANDER.
--- NOTE | 2019-09-02 15:37 | NUR ---
WADE NOTE/IA ATTEMPTED TO CALL PATIENT ROOM, NO ANSWER. CALLED [phone] ON FACESHEET, SPOUSE ANSWERED AND STATED NUMBER WAS [facility] [place]. OTHER NUMBER LISTED [phone] IS SPOUSE CELLPHONE. NURSES STATION CALLED TO HAVE ROOM PHONE BY PATIENT, STATES SHE HAS PHONE NEXT TO HER. ATTEMPTED TO CALL ROOM PHONE [phone], NO ANSWER. CALLED SPOUSE AGAIN, FELTON ZAVALA. PER SPOUSE, PATIENT IS INDEPENDENT WITH ADLS, LIVES WITH HIM ON THE INDEPENDENT LIVING SECTION OF [facility], HAS USE OF CANE, ROLLATOR WALKER, WC AND ELECTRIC SCOOTER, NO PROVIDER OR HOME HEALTH IN USE AND FEELS SAFE TO RETURN HOME. Addendum: 09/02/19 at 1549 by SHAYY CABRERA RN CM Amended: Links added.
[2019-09-02] MEDS ORDERED: WARFARIN SODIUM 2.5 MG TAB PO SCH (16:00)
[2019-09-02 16:37] VITALS: BP 104/51
[2019-09-02] MEDS: FUROSEMIDE 40 MG TABLET PO SCH (20:13)
[2019-09-02] MEDS: MIDODRINE HCL 5 MG TABLET PO SCH (20:14)
[2019-09-02] MEDS: DIVALPROEX SODIUM 250 MG TABLET.DR PO SCH (20:14)
[2019-09-02 20:25] VITALS: BP 118/66
[2019-09-02] MEDS: ACETAMINOPHEN 325 MG TAB PO PRN (21:33)
[2019-09-02 23:56] VITALS: BP 108/51
[2019-09-03] MEDS: CLINDAMYCIN 600 MG/D5% WATER 50 ML IV SCH ×4 (00:21→18:38)
[2019-09-03 04:13] VITALS: BP 124/60
[2019-09-03 06:10] LABS: INR 1.87 (0.85-1.15); PARTIAL THROMBOPLASTIN TIME 53.2 SEC (26.3-35.5); PROTHROMBIN TIME 19.7 SEC (9.6-11.6)
[2019-09-03 07:56] VITALS: BP 114/65
--- NOTE | 2019-09-03 08:00 | NUR ---
AM ASSESSMENT PT AWAKE AND ALERT, DENIES CHEST PAIN. PPM PRECAUTIONS, SITE INTACT, NO DRAINAGE OR HEMATOMA, PULSES PRESENT. PAIN RELIEVER OFFERED TO PT, REFUSED AT THIS TIME. MADE PT AWARE IF NEEDING PAIN RELIEVER TO CALL STAFF. CALL LIGHT WITHIN REACH
[2019-09-03] MEDS: FAMOTIDINE/PF 20 MG/2 ML VIAL IV SCH (09:03)
[2019-09-03] MEDS: MIDODRINE HCL 5 MG TABLET PO SCH ×2 (09:04→20:39)
[2019-09-03] MEDS: FE FUMARATE/FA/MV, MIN COMB#15 1 TAB PO SCH (09:04)
[2019-09-03] MEDS: DIVALPROEX SODIUM 250 MG TABLET.DR PO SCH ×2 (09:04→20:38)
[2019-09-03] MEDS: POTASSIUM CHLORIDE 10 MEQ/TAB.SA PO SCH (09:04)
[2019-09-03] MEDS: FUROSEMIDE 40 MG TABLET PO SCH ×2 (09:05→20:39)
[2019-09-03] MEDS: SPIRONOLACTONE 25 MG TAB PO SCH (09:05)
[2019-09-03] MEDS: ACETAMINOPHEN-CODEINE 300/30MG TAB PO PRN ×2 (11:50→20:40)
[2019-09-03 12:20] VITALS: BP 117/64
[2019-09-03] MEDS ORDERED: WARFARIN SODIUM 5 MG TAB PO SCH ×2 (16:00)
--- NOTE | 2019-09-03 16:30 | NUR ---
NO PAIN PT SITTING ON SIDE OF BED, AWAKE AND ORIENTED. DENIES ANY FURTHER DISCOMFORT, PPM PRECAUTIONS, SITE REMAINS UNCHANGED. TELEMETRY MONITORING. PT REMINDED IF NEEDING PRN PAIN RELIEVER TO NOTIFY STAFF.
[2019-09-03 17:05] VITALS: BP 119/56
[2019-09-03 20:07] VITALS: BP 95/50
[2019-09-04 00:14] VITALS: BP 104/62
[2019-09-04] MEDS: CLINDAMYCIN 600 MG/D5% WATER 50 ML IV SCH ×3 (00:31→12:40)
[2019-09-04 04:14] VITALS: BP 104/53
[2019-09-04 05:44] LABS: BASOPHILS % (AUTO) 1.3 % (0.0-5.0); HEMATOCRIT 28.5 % (36-48); LYMPHOCYTES % (AUTO) 12.3 % (21.0-51.0); MEAN CORPUSCULAR HGB CONC 32.3 g/dL (32.0-36.0); MEAN CORPUSCULAR VOLUME 86.9 fL (79-99); MONOCYTES % (AUTO) 18.3 % (3.0-13.0); NEUTROPHILS % (AUTO) 64.1 % (40.0-77.0); PLATELET COUNT (AUTO) 116 K/uL (130-400); RED BLOOD CELL COUNT(AUTO) 3.28 MIL/uL (4.00-5.50); RED CELL DISTRIBUTION WIDTH 14.8 % (11.0-15.5)
[2019-09-04 05:56] LABS: CREATININE 3.6 mg/dL (0.5-1.5); POTASSIUM 4.3 mmol/L (3.5-5.1)
[2019-09-04 06:00] LABS: INR 3.05 (0.85-1.15); PROTHROMBIN TIME 31.6 SEC (9.6-11.6)
--- NOTE | 2019-09-04 08:30 | NUR ---
AM ASSESSMENT PT AWAKE AND ORIENTED. DENIES PAIN AT THIS TIME. PPM SITE REMAINS SIGHTLY EDEMATOUS WITH SLIGHT BRUISING TO SURROUNDING TISSUE. PULSES PALPABLE TO LEFT EXTREMITY, UNCHANGED FROM YESTERDAY. DRSG CLEAN DRY AND INTACT, PPM PRECAUTIONS. BRACE TO LEFT WRIST IN PLACE. PT REMINDED TO ASK STAFF FOR PAIN RELIEVER IF NEEDED, CALL LIGHT WITHIN REACH.
[2019-09-04] MEDS: FE FUMARATE/FA/MV, MIN COMB#15 1 TAB PO SCH (08:46)
[2019-09-04] MEDS: DIVALPROEX SODIUM 250 MG TABLET.DR PO SCH ×2 (08:47→20:01)
[2019-09-04] MEDS: POTASSIUM CHLORIDE 10 MEQ/TAB.SA PO SCH (08:47)
[2019-09-04] MEDS: FAMOTIDINE/PF 20 MG/2 ML VIAL IV SCH (08:47)
[2019-09-04] MEDS: MIDODRINE HCL 5 MG TABLET PO SCH ×3 (08:47→20:01)
[2019-09-04 08:49] VITALS: BP 108/64
[2019-09-04] MEDS: FUROSEMIDE 40 MG TABLET PO SCH (09:00)
[2019-09-04] MEDS: SPIRONOLACTONE 25 MG TAB PO SCH (09:00)
[2019-09-04 11:19] VITALS: BP 96/54
--- NOTE | 2019-09-04 11:29 | NUR ---
CHART REVIEWED, PENDING COVID RESULTS, POSS DC WHEN FINAL TRANSPORT BY [facility]. Addendum: 09/04/19 at 1130 by MAGGIE ROBERTS RN CM Amended: Links added.
--- NOTE | 2019-09-04 11:30 | NUR ---
ABNORMAL LAB VALUES ERASMO ACOSTA RESIDENTIAL TREATMENT SPECIALIST LIN[employer] MANAGER FOR HOSPITALIST PAGED TO MAKE AWARE OF ELEVATED BUN/CREA AND INR >3 AND DROP IN HGB/HCT. STATES WILL COME TO SEE PT.
--- NOTE | 2019-09-04 12:00 | NUR ---
MEDICATIONS HELD PER ERASMO ACOSTA BEE KEEPER, STATES TO HOLD DIURETICS AND ANTIBIOTICS FOR NOW UNTIL SEEN BY CONSULTANTS
--- NOTE | 2019-09-04 12:15 | NUR ---
ID CONSULT DR STEINBERG MADE AWARE OF CONSULT
--- NOTE | 2019-09-04 12:45 | NUR ---
NEPHROLOGY CONSULT CALL PLACED TO ANSWERING SERVICE TO MAKE AWARE OF CONSULT, INFORMATION GIVEN , DR LOPEZ MATERIALS TECH.
[2019-09-04] MEDS: ACETAMINOPHEN-CODEINE 300/30MG TAB PO PRN ×3 (13:07→22:43)
[2019-09-04 15:50] VITALS: BP 110/67
[2019-09-04] MEDS ORDERED: WARFARIN SODIUM 5 MG TAB PO SCH (16:00)
[2019-09-04] MEDS: CLINDAMYCIN HCL 150 MG CAP PO SCH ×2 (16:41→20:01)
--- NOTE | 2019-09-04 17:00 | NUR ---
MD VISIT DR LAU AND Mira ACOSTAP IN TO SEE PT, ASSESSED PPM SITE , LEFT ARM BRUISING AND SLIGHT SWELLING. STATE TO CONTINUE TO MONITOR AND NOTIFY MD IF ANY CHANGED OR CONCERNS
[2019-09-04 19:57] VITALS: BP 113/61
[2019-09-05] VITALS (7 sets, daily range): BP systolic 96–118; BP diastolic 51–66
[2019-09-05] MEDS: CLINDAMYCIN HCL 150 MG CAP PO SCH ×2 (04:47→09:04)
[2019-09-05 05:59] LABS: BASOPHILS % (AUTO) 0.8 % (0.0-5.0); EOSINOPHILS % (AUTO) 3.3 % (0.0-8.0); HEMATOCRIT 27.9 % (36-48); LYMPHOCYTES % (AUTO) 12.6 % (21.0-51.0); MEAN CORPUSCULAR HEMOGLOBIN 28.2 pg (27.0-33.0); MEAN CORPUSCULAR HGB CONC 31.9 g/dL (32.0-36.0); MEAN CORPUSCULAR VOLUME 88.3 fL (79-99); MONOCYTES % (AUTO) 18.9 % (3.0-13.0); NEUTROPHILS % (AUTO) 64.1 % (40.0-77.0); PLATELET COUNT (AUTO) 130 K/uL (130-400); RED BLOOD CELL COUNT(AUTO) 3.16 MIL/uL (4.00-5.50); RED CELL DISTRIBUTION WIDTH 14.8 % (11.0-15.5); WHITE BLOOD COUNT (AUTO) 3.7 K/uL (4.8-10.8)
[2019-09-05 06:22] LABS: ALBUMIN 3.2 g/dL (3.5-5.0); BILIRUBIN,TOTAL 1.2 mg/dL (0.2-1.0); CREATININE 3.2 mg/dL (0.5-1.5); POTASSIUM 4.6 mmol/L (3.5-5.1); TOTAL PROTEIN, SERUM 6.1 g/dL (6.0-8.3)
[2019-09-05] MEDS: POTASSIUM CHLORIDE 10 MEQ/TAB.SA PO SCH (09:00)
[2019-09-05] MEDS: FE FUMARATE/FA/MV, MIN COMB#15 1 TAB PO SCH (09:04)
[2019-09-05] MEDS: MIDODRINE HCL 5 MG TABLET PO SCH ×3 (09:04→20:16)
[2019-09-05] MEDS: FAMOTIDINE/PF 20 MG/2 ML VIAL IV SCH (09:04)
[2019-09-05] MEDS: DIVALPROEX SODIUM 250 MG TABLET.DR PO SCH ×2 (09:04→20:16)
[2019-09-05] MEDS: SODIUM CHLORIDE 0.9% 1000ML 1,000 ML IV SCH (09:19)
[2019-09-05 09:40] LABS: INR 4.56 (0.85-1.15); PROTHROMBIN TIME 46.5 SEC (9.6-11.6)
[2019-09-05] MEDS: ACETAMINOPHEN 325 MG TAB PO PRN ×2 (13:50→22:59)
[2019-09-06] MEDS: SODIUM CHLORIDE 0.9% 1000ML 1,000 ML IV SCH (01:10)
[2019-09-06] MEDS: ACETAMINOPHEN-CODEINE 300/30MG TAB PO PRN (03:22)
[2019-09-06 03:27] VITALS: BP 123/72
[2019-09-06 06:17] LABS: BASOPHILS % (AUTO) 0.8 % (0.0-5.0); EOSINOPHILS % (AUTO) 3.1 % (0.0-8.0); LYMPHOCYTES % (AUTO) 11.1 % (21.0-51.0); MEAN CORPUSCULAR HEMOGLOBIN 28.7 pg (27.0-33.0); MEAN CORPUSCULAR HGB CONC 32.3 g/dL (32.0-36.0); MEAN CORPUSCULAR VOLUME 88.7 fL (79-99); MONOCYTES % (AUTO) 18.9 % (3.0-13.0); NEUTROPHILS % (AUTO) 65.8 % (40.0-77.0); PLATELET COUNT (AUTO) 117 K/uL (130-400); RED BLOOD CELL COUNT(AUTO) 2.93 MIL/uL (4.00-5.50); RED CELL DISTRIBUTION WIDTH 15.2 % (11.0-15.5); WHITE BLOOD COUNT (AUTO) 3.6 K/uL (4.8-10.8)
[2019-09-06 06:34] LABS: ALBUMIN 3.1 g/dL (3.5-5.0); BILIRUBIN,TOTAL 1.2 mg/dL (0.2-1.0); CREATININE 2.7 mg/dL (0.5-1.5); POTASSIUM 4.9 mmol/L (3.5-5.1); TOTAL PROTEIN, SERUM 5.9 g/dL (6.0-8.3)
[2019-09-06 06:48] LABS: PARTIAL THROMBOPLASTIN TIME 62.2 SEC (26.3-35.5)
[2019-09-06 06:55] LABS: % IRON SATURATION 14.2 % (22-44)
[2019-09-06 07:00] LABS: INR 4.51 (0.85-1.15)
[2019-09-06 08:30] VITALS: BP 116/61
[2019-09-06] MEDS: FAMOTIDINE/PF 20 MG/2 ML VIAL IV SCH (08:51)
[2019-09-06] MEDS: MIDODRINE HCL 5 MG TABLET PO SCH ×2 (08:51→13:04)
[2019-09-06] MEDS: DIVALPROEX SODIUM 250 MG TABLET.DR PO SCH (08:51)
[2019-09-06] MEDS: FE FUMARATE/FA/MV, MIN COMB#15 1 TAB PO SCH (08:51)
[2019-09-06] MEDS: POTASSIUM CHLORIDE 10 MEQ/TAB.SA PO SCH (09:00)
[2019-09-06] MEDS ORDERED: IRON SUCROSE COMPLEX 100 MG in SODIUM CHLORIDE 0.9% 50 ML IV SCH (09:54)
[2019-09-06] MEDS ORDERED: COMPOUND IV MISC 1 EACH IVSOLN MISC PRN (10:00)
[2019-09-06 12:43] VITALS: BP 117/58
[2019-09-06] MEDS ORDERED: Midodrine Hcl PO ×2 (14:41)
[2019-09-06] MEDS ORDERED: FURO40TA5 PO ×2 (14:49)
[2019-09-06] MEDS ORDERED: FURO20TA4 PO ×2 (14:49)
[2019-09-06] MEDS ORDERED: SPIR25TA6 PO ×2 (14:49)
--- NOTE | 2019-09-06 15:56 | NUR ---
DISCHARGE INSTRUCTIONS GIVEN TO PATIENT, MADE AWARE OF NEW RX FOR MIDODRINE, LASIX AND SPIRONOLACTONE. AWARE TO HOLD COUMADIN. MADE AWARE OF FOLLOW UP APPT WITH PCP AND DR. MOE WELL PT INR CHECK FOR THURSDAY AT [facility]. PATIENT VOICED UNDERSTANDING. PATIENT AT THIS TIME DENIES ANY PAIN, AFEBRILE, NO SIGNS AND SYMPTOMS OF DISTRESS. AMBULATING IN ROOM WITH NO DIFFICULTIES. NO ANTIBIOTICS RX PER DR. STEINBERG. PATIENT COVID NEGATIVE, WILL BE RETURNING TO [facility]. SPOKE WITH NENO WILL BE PICKING PATIENT UP. IV AND TELE REMOVED . LEFT ARM CONTINUES WITH SWELLING AND BRUSING FROM PACEMAKER. DRESSING DRY AND INTACT.
[2019-09-06] MEDS ORDERED: WARFARIN SODIUM 2 MG TAB PO SCH (16:00)
[2019-09-06] MEDS ORDERED: WARFARIN SODIUM 2.5 MG TAB PO SCH (16:00)
[2019-09-06] MEDS ORDERED: WARFARIN SODIUM 1 MG TAB PO SCH (16:00)
[2019-09-07] MEDS ORDERED: WARFARIN SODIUM 5 MG TAB PO SCH (09:00)
[2019-09-08] MEDS ORDERED: WARFARIN SODIUM 5 MG TAB PO SCH (16:00)
== END 2019-09-06 16:58 | disposition home or self-care (01) | DRG 261 ==
LOC: EDH 20:44 → EDHIP 09-02 00:42 → 4DH 09-02 01:56 → 2DH 09-02 11:44
PROVIDERS: ADMIT Internal Medicine; ATTEND Internal Medicine
PROC: 02PA0MZ Removal of Cardiac Lead from Heart, Open Approach (ICD-10-PCS; principal; 2019-08-31)
PROC: 02HK3JZ Insertion of Pacemaker Lead into Right Ventricle, Percutaneous Approach (ICD-10-PCS; 2019-08-31)
DX: T82.118A Breakdown (mechanical) of other cardiac electronic device, initial encounter (principal); L03.114 Cellulitis of left upper limb; N17.9 Acute kidney failure, unspecified; I48.20 Chronic atrial fibrillation, unspecified; I42.9 Cardiomyopathy, unspecified; N18.9 Chronic kidney disease, unspecified; I12.9 Hypertensive chronic kidney disease with stage 1 through stage 4 chronic kidney disease, or unspecified chronic kidney disease; E78.00 Pure hypercholesterolemia, unspecified; I95.89 Other hypotension; D64.9 Anemia, unspecified; D72.819 Decreased white blood cell count, unspecified; E87.70 Fluid overload, unspecified; I25.10 Atherosclerotic heart disease of native coronary artery without angina pectoris; I45.10 Unspecified right bundle-branch block; J44.9 Chronic obstructive pulmonary disease, unspecified; M06.9 Rheumatoid arthritis, unspecified; G47.33 Obstructive sleep apnea (adult) (pediatric); M54.17 Radiculopathy, lumbosacral region; Z79.01 Long term (current) use of anticoagulants; Z80.3 Family history of malignant neoplasm of breast; Z82.0 Family history of epilepsy and other diseases of the nervous system; Z82.3 Family history of stroke; Z82.49 Family history of ischemic heart disease and other diseases of the circulatory system; Z82.5 Family history of asthma and other chronic lower respiratory diseases; Z85.3 Personal history of malignant neoplasm of breast; Z90.710 Acquired absence of both cervix and uterus; Z95.2 Presence of prosthetic heart valve; Z91.041 Radiographic dye allergy status; Z91.011 Allergy to milk products; Z99.81 Dependence on supplemental oxygen; Z81.8 Family history of other mental and behavioral disorders; Z83.6 Family history of other diseases of the respiratory system; Z82.61 Family history of arthritis; Z83.49 Family history of other endocrine, nutritional and metabolic diseases; Z03.818 Encounter for observation for suspected exposure to other biological agents ruled out; R07.9 Chest pain, unspecified; Y83.8 Other surgical procedures as the cause of abnormal reaction of the patient, or of later complication, without mention of misadventure at the time of the procedure; Y92.89 Other specified places as the place of occurrence of the external cause
CPT/HCPCS: 33216; 36415; 71045; 71250; 73090; 73100; 73130; 80048; 80053; 81001; 82306; 82550; 83540; 83550; 83605; 83874; 83880; 84145; 84484; 85025; 85610; 85651; 85730; 86140; 87040; 87633; 87635; 93005; 93306; 99156; 99157; A4606; G0378; J0690; J1650; J1756; J1885; J2175; J2250; J3490; J7030; Q9967

== ENCOUNTER 2019-09-08 09:42 | Emergency (ER) | payer MEDICARE ==
[~2019-09-08 09:42] MED LIST changes: +FURO20TA4 PO; +Midodrine Hcl PO; -WARF-57 PO
[2019-09-08 11:01] LABS: HEMATOCRIT 26.6 % (36-48); LYMPHOCYTES % (AUTO) 9.7 % (21.0-51.0); MEAN CORPUSCULAR HEMOGLOBIN 28.9 pg (27.0-33.0); MEAN CORPUSCULAR HGB CONC 33.1 g/dL (32.0-36.0); MEAN CORPUSCULAR VOLUME 87.5 fL (79-99); MONOCYTES % (AUTO) 22.1 % (3.0-13.0); NEUTROPHILS % (AUTO) 65.2 % (40.0-77.0); PLATELET COUNT (AUTO) 128 K/uL (130-400); RED BLOOD CELL COUNT(AUTO) 3.04 MIL/uL (4.00-5.50); RED CELL DISTRIBUTION WIDTH 15.3 % (11.0-15.5)
[2019-09-08 11:11] LABS: POTASSIUM 4.4 mmol/L (3.5-5.1)
[2019-09-08 11:15] LABS: ALBUMIN 3.6 g/dL (3.5-5.0); BILIRUBIN,TOTAL 2.1 mg/dL (0.2-1.0); TOTAL PROTEIN, SERUM 6.8 g/dL (6.0-8.3)
[2019-09-08 11:43] LABS: INR 1.52 (0.85-1.15); PARTIAL THROMBOPLASTIN TIME 50.6 SEC (26.3-35.5); PROTHROMBIN TIME 16.2 SEC (9.6-11.6)
[2019-09-08 13:19] LABS: APPEARANCE,URINE Clear (CLEAR); BILIRUBIN,URINE Negative (NEGATIVE); COLOR,URINE Yellow (YELLOW); GLUCOSE, URINE (UA) Negative (NEGATIVE); KETONES,URINE Negative (NEGATIVE); LEUKOCYTE ESTERASE ,URINE Trace (NEGATIVE); NITRATE,URINE Negative (NEGATIVE); OCCULT BLOOD,URINE Negative (NEGATIVE); PH,URINE 5.5 (5.0-8.0); PROTEIN,URINE Negative (NEGATIVE)
[2019-09-08 13:42] LABS: RBC,URINE 0-1 /HPF (0-1); WBC,URINE 0-1 /HPF (0-1)
[2019-09-08 13:43] LABS: BACTERIA,URINE Rare /HPF (None Seen); HYALINE CASTS, URINE 0-1 /LPF (0-1 /LPF); SQUAMOUS EPITHELIAL CELL,UR Rare /HPF (0-2)
== END 2019-09-08 15:51 | disposition home or self-care (01) ==
LOC: EDH 09:42
DX: M79.89 Other specified soft tissue disorders (principal); G89.18 Other acute postprocedural pain; R07.89 Other chest pain; J44.9 Chronic obstructive pulmonary disease, unspecified; I48.91 Unspecified atrial fibrillation; I25.10 Atherosclerotic heart disease of native coronary artery without angina pectoris; Z85.3 Personal history of malignant neoplasm of breast; Z91.041 Radiographic dye allergy status; Z95.0 Presence of cardiac pacemaker
CPT/HCPCS: 36415; 71045; 80053; 81001; 82550; 85025; 85610; 85730; 93971

== ENCOUNTER 2019-09-25 10:02 | Inpatient (IN) | payer MEDICARE ==
[2019-09-25 10:50] LABS: BASOPHILS % (AUTO) 1.2 % (0.0-5.0); EOSINOPHILS % (AUTO) 3.4 % (0.0-8.0); HEMATOCRIT 32.4 % (36-48); LYMPHOCYTES % (AUTO) 14.8 % (21.0-51.0); MEAN CORPUSCULAR HEMOGLOBIN 28.3 pg (27.0-33.0); MEAN CORPUSCULAR HGB CONC 31.5 g/dL (32.0-36.0); MONOCYTES % (AUTO) 18.5 % (3.0-13.0); NEUTROPHILS % (AUTO) 62.1 % (40.0-77.0); PLATELET COUNT (AUTO) 125 K/uL (130-400); RED CELL DISTRIBUTION WIDTH 16.2 % (11.0-15.5); WHITE BLOOD COUNT (AUTO) 3.2 K/uL (4.8-10.8)
[2019-09-25 11:00] LABS: PARTIAL THROMBOPLASTIN TIME 57.2 SEC (26.3-35.5)
[2019-09-25 11:03] LABS: PROTHROMBIN TIME 46.5 SEC (9.6-11.6)
[2019-09-25 11:04] LABS: INR 4.56 (0.85-1.15)
[2019-09-25] MEDS ORDERED: ACETAMINOPHEN 650 MG SUPPOSITORY RC PRN (13:00)
[2019-09-25] MEDS: SODIUM CHLORIDE 0.9% 1000ML 1,000 ML IV SCH (13:00)
[2019-09-25] MEDS ORDERED: SODIUM CHLORIDE 0.9% 1000ML 1,000 ML IV ONE (14:47)
[2019-09-25 16:00] VITALS: BP 122/54
[2019-09-25] MEDS ORDERED: CALC-1009 PO (16:13)
[2019-09-25] MEDS ORDERED: FURO80TA3 PO (16:13)
[2019-09-25] MEDS ORDERED: POTASSIUM CHLORIDE 10 MEQ/TAB.SA PO SCH (18:15)
[2019-09-25 18:42] LABS: HEMATOCRIT 29.9 % (36-48)
[2019-09-25 20:14] VITALS: BP 108/56
[2019-09-25] MEDS: FAMOTIDINE/PF 20 MG/2 ML VIAL IV SCH (20:26)
[2019-09-25] MEDS: MIDODRINE HCL 5 MG TABLET PO SCH (20:27)
[2019-09-25] MEDS: DIVALPROEX SODIUM 250 MG TABLET.DR PO SCH (20:27)
[2019-09-25 23:48] VITALS: BP 109/57
[2019-09-26] MEDS: SODIUM CHLORIDE 0.9% 1000ML 1,000 ML IV SCH (01:46)
[2019-09-26 02:34] LABS: BASOPHILS % (AUTO) 1.5 % (0.0-5.0); EOSINOPHILS % (AUTO) 4.4 % (0.0-8.0); HEMATOCRIT 28.1 % (36-48); LYMPHOCYTES % (AUTO) 17.4 % (21.0-51.0); MEAN CORPUSCULAR HEMOGLOBIN 28.8 pg (27.0-33.0); MEAN CORPUSCULAR VOLUME 89.8 fL (79-99); MONOCYTES % (AUTO) 18.9 % (3.0-13.0); NEUTROPHILS % (AUTO) 57.4 % (40.0-77.0); PLATELET COUNT (AUTO) 111 K/uL (130-400); RED BLOOD CELL COUNT(AUTO) 3.13 MIL/uL (4.00-5.50); RED CELL DISTRIBUTION WIDTH 16.5 % (11.0-15.5); WHITE BLOOD COUNT (AUTO) 2.7 K/uL (4.8-10.8)
[2019-09-26 03:11] LABS: INR 5.35 (0.85-1.15); PROTHROMBIN TIME 54.2 SEC (9.6-11.6)
[2019-09-26 03:13] LABS: CREATININE 1.6 mg/dL (0.5-1.5); POTASSIUM 4.1 mmol/L (3.5-5.1)
[2019-09-26 03:15] LABS: BAND NEUTROPHILS % (MANUAL) 8 % (0-2); EOSINOPHILS % (MANUAL) 4 % (1-6); LYMPHOCYTES % (MANUAL) 16 % (22-44); MONOCYTES % (MANUAL) 16 % (2-9); SEGMENTED NEUTROPHILS % 56 % (40-70)
[2019-09-26 03:16] LABS: MAN.DIFF COMMENT-IMPRESSION MANUAL DIFFERENTIAL; PLATELET MORPHOLOGY COMMENT SLIGHTLY DECREASED
[2019-09-26 04:17] VITALS: BP 111/65
[2019-09-26 07:00] VITALS: BP 119/61
--- NOTE | 2019-09-26 07:03 | NUR ---
Mr. Vazquez PA for heart clinic at bedside and assessed patient.
[2019-09-26] MEDS: SPIRONOLACTONE 25 MG TAB PO SCH (08:21)
[2019-09-26] MEDS: MIDODRINE HCL 5 MG TABLET PO SCH ×2 (08:22→19:43)
[2019-09-26] MEDS: POTASSIUM CHLORIDE 10 MEQ/TAB.SA PO SCH (08:22)
[2019-09-26] MEDS: DIVALPROEX SODIUM 250 MG TABLET.DR PO SCH ×2 (08:22→19:43)
[2019-09-26] MEDS: FUROSEMIDE 80 MG TABLET PO SCH (08:23)
[2019-09-26] MEDS: FAMOTIDINE/PF 20 MG/2 ML VIAL IV SCH ×2 (08:23→19:43)
[2019-09-26 10:12] LABS: HEMATOCRIT 32.3 % (36-48)
[2019-09-26 11:00] VITALS: BP 141/84
--- NOTE | 2019-09-26 11:17 | NUR ---
DCP: Back to [facility] met with pt who states she and have lived at [facility] 4yrs. Pt reports she is independent of ADLS, " helps me with buttons". Pt has cane, walker and scooter. PCP is Dr Sexton and she uses [facility] for local rx. Plan is home to [facility] at de. Addendum: 09/26/19 at 1120 by AMINTA HOWARD SS Amended: Links added.
[2019-09-26] MEDS ORDERED: PHYTONADIONE 10 MG/1 ML AMP IM SCH (12:30)
[2019-09-26 13:03] LABS: INR 5.45 (0.85-1.15); PROTHROMBIN TIME 55.1 SEC (9.6-11.6)
--- NOTE | 2019-09-26 15:00 | NUR ---
informed md on updated inr results for today . no new orders given
[2019-09-26 16:00] VITALS: BP 144/72
[2019-09-26 18:18] LABS: HEMATOCRIT 30.6 % (36-48)
[2019-09-26 19:20] VITALS: BP 119/60
[2019-09-27 00:16] VITALS: BP 120/67
[2019-09-27 02:52] LABS: EOSINOPHILS % (AUTO) 4.1 % (0.0-8.0); HEMATOCRIT 28.7 % (36-48); LYMPHOCYTES % (AUTO) 13.2 % (21.0-51.0); MEAN CORPUSCULAR HEMOGLOBIN 28.9 pg (27.0-33.0); MEAN CORPUSCULAR HGB CONC 32.1 g/dL (32.0-36.0); MEAN CORPUSCULAR VOLUME 90.3 fL (79-99); MONOCYTES % (AUTO) 16.3 % (3.0-13.0); NEUTROPHILS % (AUTO) 65.1 % (40.0-77.0); PLATELET COUNT (AUTO) 113 K/uL (130-400); RED BLOOD CELL COUNT(AUTO) 3.18 MIL/uL (4.00-5.50); RED CELL DISTRIBUTION WIDTH 16.3 % (11.0-15.5)
[2019-09-27 02:58] LABS: CREATININE 1.7 mg/dL (0.5-1.5)
[2019-09-27 03:05] LABS: PARTIAL THROMBOPLASTIN TIME 61.1 SEC (26.3-35.5)
[2019-09-27 03:14] LABS: INR 4.13 (0.85-1.15); PROTHROMBIN TIME 42.2 SEC (9.6-11.6)
[2019-09-27 04:09] VITALS: BP 117/62
[2019-09-27 07:00] VITALS: BP 133/66
[2019-09-27] MEDS: SPIRONOLACTONE 25 MG TAB PO SCH (07:18)
[2019-09-27] MEDS: MIDODRINE HCL 5 MG TABLET PO SCH (07:18)
[2019-09-27] MEDS: FUROSEMIDE 80 MG TABLET PO SCH (07:18)
[2019-09-27] MEDS: DIVALPROEX SODIUM 250 MG TABLET.DR PO SCH (07:18)
[2019-09-27] MEDS: FAMOTIDINE/PF 20 MG/2 ML VIAL IV SCH (07:19)
[2019-09-27] MEDS: POTASSIUM CHLORIDE 10 MEQ/TAB.SA PO SCH (07:19)
[2019-09-27] MEDS ORDERED: NEOMY SULF/BACITRA/POLYMYXIN B 1 EACH PACKET TP SCH (07:23)
--- NOTE | 2019-09-27 08:00 | NUR ---
ASSESSMENT PT IS AAOX3 DENIES CP DENIES SOB DENIES NV NO COMPLAINTS. CALL LIGHT WITHIN REACH. DR MOE ROUNDED, SAW PATIENT AND SQEEZED ON PATIENTS LEFT UPPER CHEST SITE TO REMOVE BLOOD FROM HEMATOMA HIMSELF. DR MOE PLACED DRESSING TO LEFT UPPER CHEST. PATIENT TOLERATED WELL NO COMPLAINTS.
[2019-09-27] MEDS ORDERED: SULFAMETHOX-TMP DS 800/160 TAB PO SCH (09:00)
--- NOTE | 2019-09-27 10:00 | NUR ---
DR KNOX ROUNDED SAW PATIENT, ORDERS RECEIVED
[2019-09-27 10:24] LABS: HEMATOCRIT 31.2 % (36-48)
[2019-09-27 10:39] LABS: INR 3.37 (0.85-1.15); PROTHROMBIN TIME 34.7 SEC (9.6-11.6)
[2019-09-27 11:00] VITALS: BP 126/64
[2019-09-27 16:00] VITALS: BP 125/69
[2019-09-27] MEDS ORDERED: Sulfamethox-Tmp Ds 800/160 Tab PO (17:50)
--- NOTE | 2019-09-27 18:23 | NUR ---
DISCHARGE DR GUTIÉRREZ ROUNDED. DISCHARGE PATIENT HOME ORDER RECEIVED. PIV REMOVED CATH TIP INTACT, TELE PACK REMOVED. ALL QUESTIONS ANSWERED. AGREE TO FOLLOW UP WITH DR MOE OR THURSDAY. PATIENT HAS HER OWN INR CHECK MACHINE AND WILL REPORT TO DR MOE. AWAITING RIDE.
--- NOTE | 2019-09-27 19:00 | NUR ---
[facility] PICKED UP PATIENT. DOWN VIA WHEELCHAIR, ALL BELONGINGS TAKEN WITH PATIENT.
[2019-09-27] MEDS ORDERED: LEVETIRACETAM 250 MG TABLET PO SCH (21:00)
[2019-09-28] MEDS ORDERED: DIVALPROEX SODIUM 250 MG TABLET.DR PO SCH (09:00)
== END 2019-09-27 18:50 | disposition home or self-care (01) | DRG 920 ==
LOC: EDH 10:02 → EDHIP 12:50 → 4BH 13:23
PROVIDERS: ADMIT Hospitalist; ATTEND Hospitalist
DX: I97.638 Postprocedural hematoma of a circulatory system organ or structure following other circulatory system procedure (principal); T82.837A Hemorrhage due to cardiac prosthetic devices, implants and grafts, initial encounter; I50.22 Chronic systolic (congestive) heart failure; I48.20 Chronic atrial fibrillation, unspecified; D61.818 Other pancytopenia; D68.9 Coagulation defect, unspecified; I42.9 Cardiomyopathy, unspecified; Y83.8 Other surgical procedures as the cause of abnormal reaction of the patient, or of later complication, without mention of misadventure at the time of the procedure; G47.33 Obstructive sleep apnea (adult) (pediatric); I11.0 Hypertensive heart disease with heart failure; I25.10 Atherosclerotic heart disease of native coronary artery without angina pectoris; J44.9 Chronic obstructive pulmonary disease, unspecified; G40.909 Epilepsy, unspecified, not intractable, without status epilepticus; R53.81 Other malaise; T45.515A Adverse effect of anticoagulants, initial encounter; Y93.89 Activity, other specified; Y99.8 Other external cause status; Z79.01 Long term (current) use of anticoagulants; Z95.2 Presence of prosthetic heart valve; Z91.041 Radiographic dye allergy status; Z95.0 Presence of cardiac pacemaker; Z87.892 Personal history of anaphylaxis; Z90.710 Acquired absence of both cervix and uterus; Y92.89 Other specified places as the place of occurrence of the external cause; Z86.73 Personal history of transient ischemic attack (TIA), and cerebral infarction without residual deficits; Z85.3 Personal history of malignant neoplasm of breast; Z83.3 Family history of diabetes mellitus; Z82.5 Family history of asthma and other chronic lower respiratory diseases; Z82.49 Family history of ischemic heart disease and other diseases of the circulatory system; Z82.3 Family history of stroke; Z82.0 Family history of epilepsy and other diseases of the nervous system; Z80.3 Family history of malignant neoplasm of breast; Z80.1 Family history of malignant neoplasm of trachea, bronchus and lung; Z82.61 Family history of arthritis; Z84.1 Family history of disorders of kidney and ureter; Z84.89 Family history of other specified conditions
CPT/HCPCS: 36415; 70450; 76604; 80048; 80164; 85014; 85018; 85025; 85610; 85730; 87040; 87076; G0378; J3490; J7030

== ENCOUNTER 2019-09-30 09:56 | Inpatient (IN) | payer MEDICARE ==
[2019-09-30] VITALS (11 sets, daily range): BP systolic 102–128; BP diastolic 59–77
[~2019-09-30] VITALS: Ht 180.3 cm; Wt 83.5 kg
[~2019-09-30 09:56] MED LIST changes: +CALC-1009 PO; -FURO20TA4 PO; -FURO40TA5 PO; +FURO80TA3 PO; -Midodrine Hcl PO; +Sulfamethox-Tmp Ds 800/160 Tab PO
[2019-09-30 10:26] LABS: BASOPHILS % (AUTO) 0.6 % (0.0-5.0); EOSINOPHILS % (AUTO) 0.8 % (0.0-8.0); HEMATOCRIT 31.7 % (36-48); LYMPHOCYTES % (AUTO) 13.8 % (21.0-51.0); MEAN CORPUSCULAR HEMOGLOBIN 28.5 pg (27.0-33.0); MEAN CORPUSCULAR HGB CONC 32.5 g/dL (32.0-36.0); MEAN CORPUSCULAR VOLUME 87.6 fL (79-99); MONOCYTES % (AUTO) 18.9 % (3.0-13.0); NEUTROPHILS % (AUTO) 65.6 % (40.0-77.0); PLATELET COUNT (AUTO) 111 K/uL (130-400); RED BLOOD CELL COUNT(AUTO) 3.62 MIL/uL (4.00-5.50); RED CELL DISTRIBUTION WIDTH 16.1 % (11.0-15.5); WHITE BLOOD COUNT (AUTO) 3.5 K/uL (4.8-10.8)
[2019-09-30 10:32] LABS: CREATININE 2.6 mg/dL (0.5-1.5); POTASSIUM 4.4 mmol/L (3.5-5.1)
[2019-09-30 10:36] LABS: INR 1.55 (0.85-1.15); PARTIAL THROMBOPLASTIN TIME 39.2 SEC (26.3-35.5); PROTHROMBIN TIME 16.5 SEC (9.6-11.6)
[2019-09-30 10:37] LABS: ALBUMIN 4.1 g/dL (3.5-5.0); BILIRUBIN,TOTAL 0.9 mg/dL (0.2-1.0); TOTAL PROTEIN, SERUM 7.4 g/dL (6.0-8.3)
[2019-09-30 10:46] LABS: CREATINE KINASE, TOTAL 67 U/L (21-232); MYOGLOBIN 94 ng/mL (10-92); TROPONIN I < 0.04 ng/mL (0.00-0.06)
[2019-09-30] MEDS ORDERED: BUPIVACAINE/PF 0.25% 30ML VIAL IJ ONE (14:15)
[2019-09-30] MEDS ORDERED: LIDOCAINE HCL 1% MDV 50ML VIAL ONE (14:16)
[2019-09-30] MEDS ORDERED: VANCOMYCIN 1GM+NS 250ML 500 ML IV ONE (14:16)
[2019-09-30] MEDS ORDERED: MEPERIDINE-PF 25 MG/ML SYG ONE ×4 (15:25→17:48)
[2019-09-30] MEDS ORDERED: MIDAZOLAM HCL 1 MG/ML 2ML VIAL ONE ×4 (15:25→17:48)
[2019-09-30] MEDS ORDERED: GENTAMICIN 80 MG/NS 100 ML PB 100 ML IV SCH (15:54)
[2019-09-30] MEDS ORDERED: ACETAMINOPHEN-CODEINE 300/30MG TAB PO PRN ×2 (16:15)
[2019-09-30] MEDS ORDERED: ONDANSETRON HCL 4 MG/2 ML VIAL IV PRN ×2 (16:15→19:15)
[2019-09-30] MEDS ORDERED: VANCOMYCIN PROTOCOL PER PHARMACY IV PRN (16:15)
[2019-09-30] MEDS ORDERED: HYDRALAZINE HCL 20 MG/ML VIAL IV PRN (16:15)
[2019-09-30] MEDS ORDERED: ZOLPIDEM TARTRATE 5 MG TAB PO PRN (16:15)
[2019-09-30] MEDS ORDERED: THROMBIN-JMI 5000 UNIT/VIAL TP ONE (17:38)
[2019-09-30] MEDS ORDERED: THROMBIN-JMI 20000 UNIT KIT TP ONE (18:09)
--- NOTE | 2019-09-30 19:30 | NUR ---
ADMISSION RECEIVED REPORT FROM [facility] 1950 PT ADMIT RM 413 PT SURGICAL SITE ASSESSED AND DR. LEDESMA REVIEWED AT BEDSIDE WITH STERILIZER MACHINE OPERATOR. PT LETHARGIC BUT AROUSABLE. IN NO APPARENT DISTRESS AT THIS TIME. WILL CONTINUE TO MONITOR.
[2019-09-30] MEDS ORDERED: ZOSYN 3.375GM+NS 50ML 50 ML IV SCH (21:00)
[2019-09-30] MEDS: MIDODRINE HCL 5 MG TABLET PO SCH (22:14)
[2019-09-30] MEDS: SULFAMETHOX-TMP DS 800/160 TAB PO SCH (22:14)
[2019-09-30] MEDS: DIVALPROEX SODIUM 250 MG TABLET.DR PO SCH (22:15)
[2019-10-01] VITALS: BP 119/60
[2019-10-01] MEDS: ACETAMINOPHEN-CODEINE 300/30MG TAB PO PRN ×3 (00:34→23:04)
[2019-10-01 03:00] VITALS: BP 101/70
[2019-10-01] MEDS ORDERED: VANCOMYCIN 1GM+NS 250ML 250 ML IV ONE (05:23)
[2019-10-01 05:28] LABS: BASOPHILS % (AUTO) 0.8 % (0.0-5.0); EOSINOPHILS % (AUTO) 0.8 % (0.0-8.0); HEMATOCRIT 31.4 % (36-48); LYMPHOCYTES % (AUTO) 11.2 % (21.0-51.0); MEAN CORPUSCULAR HEMOGLOBIN 28.5 pg (27.0-33.0); MEAN CORPUSCULAR HGB CONC 31.8 g/dL (32.0-36.0); MEAN CORPUSCULAR VOLUME 89.5 fL (79-99); MONOCYTES % (AUTO) 17.3 % (3.0-13.0); NEUTROPHILS % (AUTO) 69.6 % (40.0-77.0); PLATELET COUNT (AUTO) 107 K/uL (130-400); RED BLOOD CELL COUNT(AUTO) 3.51 MIL/uL (4.00-5.50); WHITE BLOOD COUNT (AUTO) 3.7 K/uL (4.8-10.8)
[2019-10-01] MEDS: VANCOMYCIN 500MG+NS 100ML 100 ML IV SCH (05:30)
[2019-10-01 05:50] LABS: ALBUMIN 3.8 g/dL (3.5-5.0); BILIRUBIN,TOTAL 0.9 mg/dL (0.2-1.0); CREATININE 2.5 mg/dL (0.5-1.5); POTASSIUM 4.9 mmol/L (3.5-5.1); TOTAL PROTEIN, SERUM 6.8 g/dL (6.0-8.3)
[2019-10-01 08:00] VITALS: BP 120/68
[2019-10-01] MEDS: FAMOTIDINE 20MG TAB 20 MG TAB PO SCH (08:55)
[2019-10-01] MEDS: DIVALPROEX SODIUM 250 MG TABLET.DR PO SCH ×2 (08:56→21:13)
[2019-10-01] MEDS: SULFAMETHOX-TMP DS 800/160 TAB PO SCH ×2 (08:56→21:13)
[2019-10-01] MEDS: CALCIUM 600 + VITAMIN D 400 TABLET PO SCH (08:56)
[2019-10-01] MEDS: MIDODRINE HCL 5 MG TABLET PO SCH ×2 (08:56→21:13)
[2019-10-01] MEDS: LETROZOLE 2.5 MG PO SCH (08:57)
[2019-10-01] MEDS: POTASSIUM CHLORIDE 10 MEQ/TAB.SA PO SCH (08:57)
[2019-10-01] MEDS ORDERED: FUROSEMIDE 80 MG TABLET PO SCH (09:00)
[2019-10-01 12:00] VITALS: BP 112/69
[2019-10-01] MEDS ORDERED: SPIRONOLACTONE 25 MG TAB PO SCH (12:00)
--- NOTE | 2019-10-01 12:00 | NUR ---
DRESSING CHANGE LEFT CHEST PACEMAKER SITE CHANGED DRESSING TO LEFT CHEST PACEMAKER SITE PER DR LOPEZ'S ORDERS. USE STRICT STERILE TECHNIQUE TO CHANGE DRESSING. CLEANSED SITE WITH WITH STERILE SALINE, DRIED WITH STERILE 4X4 AND COVERED WITH NON ADHESIVE GAUZE AND TEGADERM.
[2019-10-01] MEDS: FE FUMARATE/FA/MV, MIN COMB#15 1 TAB PO SCH (12:57)
[2019-10-01] MEDS: NEOMY SULF/BACITRAC ZN/POLY OINT 30GM TUBE TP SCH (15:42)
[2019-10-01 16:00] VITALS: BP 112/40
[2019-10-01] MEDS ORDERED: SODIUM CHLORIDE 0.9% IJ SCH (17:45)
[2019-10-01] MEDS ORDERED: DESMOPRESSIN ACETATE IJ SCH (17:45)
[2019-10-01 19:00] VITALS: BP 123/56
--- NOTE | 2019-10-01 19:26 | NUR ---
cm note met with patient and states resides with spouse at [facility] independent living apartments, uses primarily cane and walker, but does use scooter for long distances.able to do own personal care, spouse assists her as needed. spouse or facility trasnsports her to md appts. states dc plan is back to same setting, but her spouse is very concernted regarding her readmissions to hospital due to dressing changes and bleeding to site. and has discussed possible snf level of care for her at [facility]. informed pt that would need to discuss with MD and obtain orders as per his recommendation, also discussed home health option for pt, states she will discuss with md tomorrow and decide. Addendum: 10/01/19 at 1932 by LACHO STEPHENSON Amended: Links added.
[2019-10-02] VITALS: BP 117/50
[2019-10-02 04:00] VITALS: BP 111/68
[2019-10-02 06:03] LABS: HEMATOCRIT 29.5 % (36-48); MEAN CORPUSCULAR HEMOGLOBIN 28.6 pg (27.0-33.0); MEAN CORPUSCULAR HGB CONC 32.2 g/dL (32.0-36.0); MEAN CORPUSCULAR VOLUME 88.9 fL (79-99); PLATELET COUNT (AUTO) 114 K/uL (130-400); RED BLOOD CELL COUNT(AUTO) 3.32 MIL/uL (4.00-5.50); RED CELL DISTRIBUTION WIDTH 16.3 % (11.0-15.5)
[2019-10-02 06:21] LABS: INR 2.93 (0.85-1.15); PROTHROMBIN TIME 30.4 SEC (9.6-11.6)
[2019-10-02 06:22] LABS: B-TYPE NATRIURETIC PEPTIDE 83 pg/mL (0-100)
[2019-10-02 06:46] LABS: BAND NEUTROPHILS % (MANUAL) 7 % (0-2); BASOPHILS % (MANUAL) 1 % (0-2); EOSINOPHILS % (MANUAL) 2 % (1-6); LYMPHOCYTES % (MANUAL) 4 % (22-44); MONOCYTES % (MANUAL) 13 % (2-9); REACTIVE LYMPHOCYTES 2 % (0-0); SEGMENTED NEUTROPHILS % 71 % (40-70)
[2019-10-02] MEDS: VANCOMYCIN 500MG+NS 100ML 100 ML IV SCH (06:46)
[2019-10-02 06:49] LABS: MAN.DIFF COMMENT-IMPRESSION MANUAL DIFFERENTIAL; PLATELET MORPHOLOGY COMMENT SLIGHTLY DECREASED
[2019-10-02 07:25] LABS: ALBUMIN 3.6 g/dL (3.5-5.0); BILIRUBIN,TOTAL 0.8 mg/dL (0.2-1.0); POTASSIUM 5.1 mmol/L (3.5-5.1); TOTAL PROTEIN, SERUM 6.5 g/dL (6.0-8.3)
[2019-10-02 08:00] VITALS: BP 125/50
[2019-10-02] MEDS: FAMOTIDINE 20MG TAB 20 MG TAB PO SCH (08:56)
[2019-10-02] MEDS: DIVALPROEX SODIUM 250 MG TABLET.DR PO SCH ×2 (08:56→20:48)
[2019-10-02] MEDS: NEOMY SULF/BACITRAC ZN/POLY OINT 30GM TUBE TP SCH (08:56)
[2019-10-02] MEDS: MIDODRINE HCL 5 MG TABLET PO SCH ×2 (08:56→20:48)
[2019-10-02] MEDS: CALCIUM 600 + VITAMIN D 400 TABLET PO SCH (08:57)
[2019-10-02] MEDS: FE FUMARATE/FA/MV, MIN COMB#15 1 TAB PO SCH (08:57)
[2019-10-02] MEDS: SULFAMETHOX-TMP DS 800/160 TAB PO SCH (08:57)
[2019-10-02] MEDS: LETROZOLE 2.5 MG PO SCH (08:57)
[2019-10-02] MEDS: POTASSIUM CHLORIDE 10 MEQ/TAB.SA PO SCH (09:00)
[2019-10-02 11:25] VITALS: BP 118/70
--- NOTE | 2019-10-02 12:00 | NUR ---
cm note spoke to Paula Cleary with [employer] regarding pt request for dc planning to snf, and she requested i speak to dr Arriaga laborer construction or leak gang regarding dc plan options. spoke to dr nanette arriaga, regardiing pt's request for possible snf or HH for followup at home. per dr arriaga states that he does not feel pt requires skilled facility.states pt will need frequent INr checks. possibly Every other day, and she can continue to come to office or have HH, but states he will speak to pt about dc planning.
[2019-10-02] MEDS ORDERED: ACETAMINOPHEN 325 MG TAB ONE (12:41)
[2019-10-02] MEDS: ACETAMINOPHEN 325 MG TAB PO PRN (12:45)
[2019-10-02 15:53] LABS: BILIRUBIN,URINE Negative (NEGATIVE); COLOR,URINE Dark Yellow (YELLOW); GLUCOSE, URINE (UA) Negative (NEGATIVE); KETONES,URINE Negative (NEGATIVE); LEUKOCYTE ESTERASE ,URINE Negative (NEGATIVE); NITRATE,URINE Negative (NEGATIVE); OCCULT BLOOD,URINE Negative (NEGATIVE); PROTEIN,URINE Negative (NEGATIVE)
[2019-10-02 15:54] LABS: APPEARANCE,URINE CLOUDY (CLEAR)
[2019-10-02 15:56] LABS: CREATININE,URINE RANDOM 156 mg/dL (30-135); SODIUM,URINE RANDOM 18 mmol/l (40-220)
[2019-10-02 16:00] VITALS: BP 123/64
[2019-10-02 17:03] LABS: BACTERIA,URINE Rare /HPF (None Seen); RBC,URINE 0-1 /HPF (0-1); SQUAMOUS EPITHELIAL CELL,UR Rare /HPF (0-2); WBC,URINE 0-1 /HPF (0-1)
[2019-10-02 17:04] LABS: URIC ACID CRYSTALS,URINE Moderate /LPF (None Seen)
[2019-10-02 20:26] VITALS: BP 114/64
[2019-10-02] MEDS: OCTREOTIDE ACETATE 100 MCG/ML AMP SQ SCH (21:00)
[2019-10-03] VITALS (7 sets, daily range): BP systolic 102–126; BP diastolic 43–71
[2019-10-03] MEDS: ACETAMINOPHEN 325 MG TAB PO PRN (04:12)
[2019-10-03 04:32] LABS: EOSINOPHILS % (AUTO) 5.2 % (0.0-8.0); HEMATOCRIT 28.7 % (36-48); LYMPHOCYTES % (AUTO) 12.7 % (21.0-51.0); MEAN CORPUSCULAR HEMOGLOBIN 28.7 pg (27.0-33.0); MEAN CORPUSCULAR HGB CONC 32.1 g/dL (32.0-36.0); MEAN CORPUSCULAR VOLUME 89.4 fL (79-99); MONOCYTES % (AUTO) 19.6 % (3.0-13.0); NEUTROPHILS % (AUTO) 61.2 % (40.0-77.0); PLATELET COUNT (AUTO) 104 K/uL (130-400); RED BLOOD CELL COUNT(AUTO) 3.21 MIL/uL (4.00-5.50); RED CELL DISTRIBUTION WIDTH 16.1 % (11.0-15.5); WHITE BLOOD COUNT (AUTO) 3.9 K/uL (4.8-10.8)
[2019-10-03 04:50] LABS: INR 2.28 (0.85-1.15); PROTHROMBIN TIME 23.9 SEC (9.6-11.6)
[2019-10-03 04:51] LABS: ALBUMIN 3.5 g/dL (3.5-5.0); BILIRUBIN,TOTAL 0.8 mg/dL (0.2-1.0); MAGNESIUM 2.4 mg/dL (1.80-2.40); POTASSIUM 4.8 mmol/L (3.5-5.1); TOTAL PROTEIN, SERUM 6.3 g/dL (6.0-8.3)
[2019-10-03] MEDS: VANCOMYCIN 500MG+NS 100ML 100 ML IV SCH (06:28)
[2019-10-03] MEDS: OCTREOTIDE ACETATE 100 MCG/ML AMP SQ SCH ×3 (06:28→21:01)
--- NOTE | 2019-10-03 07:00 | NUR ---
BREANNA ROUNDS CHANGED PACEMAKER BANDAGE SITE. BREANNA REQUESTING FOR [employer] FOR THE [facility]EEBLE-MINDED TO BE CALLED BACK FOR RECOMMENDATIONS ON WARFARIN DOSAGE.
[2019-10-03] MEDS: LETROZOLE 2.5 MG PO SCH (09:00)
[2019-10-03] MEDS: DIVALPROEX SODIUM 250 MG TABLET.DR PO SCH ×2 (09:35→21:01)
[2019-10-03] MEDS: FAMOTIDINE 20MG TAB 20 MG TAB PO SCH (09:35)
[2019-10-03] MEDS: CALCIUM 600 + VITAMIN D 400 TABLET PO SCH (09:35)
[2019-10-03] MEDS: MIDODRINE HCL 5 MG TABLET PO SCH ×2 (09:35→21:01)
[2019-10-03] MEDS: POTASSIUM CHLORIDE 10 MEQ/TAB.SA PO SCH (09:36)
[2019-10-03] MEDS: FE FUMARATE/FA/MV, MIN COMB#15 1 TAB PO SCH (09:38)
[2019-10-03] MEDS: NEOMY SULF/BACITRAC ZN/POLY OINT 30GM TUBE TP SCH (09:40)
--- NOTE | 2019-10-03 11:14 | NUR ---
DR MEDRANO NOTIFIED BY PHONE RECONSULT Hematology's recommendation regarding the management of warfarin. DR MEDRANO AWARE
--- NOTE | 2019-10-03 11:29 | NUR ---
I BLAYNE PAGED FOR DRESSING LEAKING REINFORCED WAITING FOR RETURN CALL
--- NOTE | 2019-10-03 12:00 | NUR ---
DR MEDRANO IN TO SEE PATIENT , ORDERS TO HOLD COUMADIN FOR 2 DAYS
--- NOTE | 2019-10-03 12:11 | NUR ---
CM Note: Andres Aaron pending approval CM spoke to pt discussed [employer] RESEARCHER recommendations for SNF, pt agreeable, very happy w/plans as she does not feel comfortable going back to her apartment at [facility] yet, JESSICA signed for [facility]. Faxed order, clinicals, PT, PASRR, and covid form, confirmation received. Spoke to Savanah will evaluate pt, aware dcp once approved. Pt pending approval at this time. Pt safe to transfer via [facility] transport van once approved, primary nurse aware. CM to cont to follow up.
--- NOTE | 2019-10-03 12:30 | NUR ---
RETURN CALL FROM Bear CISNEROS INFORMED OF LEAKING OF DRESSING , ORDERS GIVEN TO REPLACE DRESSING.
[2019-10-03] MEDS: ACETAMINOPHEN-CODEINE 300/30MG TAB PO PRN (14:11)
--- NOTE | 2019-10-03 16:03 | NUR ---
CM Note: Andres Aaron approval CM spoke to Savanah dubon/Andres Aaron. Pt has approval. Pt safe to transfer via facility van once pt ready to DC. Primary nurse aware. CM to cont to follow up.
--- NOTE | 2019-10-03 20:00 | NUR ---
DRESSING CHANGE DRESSING CHANGE PERFORMED ON PACER MAKER SITE, OLD DRESSING REMOVED COVERED WITH THIN BROWN COLOR FLUID, THAT HAD DRAINED OUT TO HER GROWN , AREA CLEANSED WITH NORMAL SALINE AND LIGHTLY PATTED DRY, TRIPLE ANABIOTIC PLACED ON REE AND STERILE 4X4 PLACED OVER SITE AND TAPED WITH PAPER TAPE THEN COVER WITH MEDFIX RETENTION TAPE SECURELY TO SKIN. PATIENT TOLERATED THE PROCEDURE. GROWN CHANGE AND PATIENT ON PHONE WITH TALKING TO FRIEND .
[2019-10-04 03:22] VITALS: BP 100/63
--- NOTE | 2019-10-04 03:35 | NUR ---
BATH PT OFFERED A BATH. PT REFUSED. WANTS TO SHOWER ONCE D/C AT [facility].
[2019-10-04] MEDS: OCTREOTIDE ACETATE 100 MCG/ML AMP SQ SCH ×2 (04:45→13:46)
[2019-10-04 05:22] LABS: HEMATOCRIT 27.8 % (36-48); MEAN CORPUSCULAR HGB CONC 30.9 g/dL (32.0-36.0); MEAN CORPUSCULAR VOLUME 90.6 fL (79-99); RED BLOOD CELL COUNT(AUTO) 3.07 MIL/uL (4.00-5.50); RED CELL DISTRIBUTION WIDTH 16.3 % (11.0-15.5); WHITE BLOOD COUNT (AUTO) 3.3 K/uL (4.8-10.8)
[2019-10-04 05:39] LABS: INR 1.96 (0.85-1.15); PARTIAL THROMBOPLASTIN TIME 52.7 SEC (26.3-35.5); PROTHROMBIN TIME 20.6 SEC (9.6-11.6)
[2019-10-04 05:48] LABS: POTASSIUM 5.3 mmol/L (3.5-5.1)
[2019-10-04] MEDS: VANCOMYCIN 500MG+NS 100ML 100 ML IV SCH (05:55)
[2019-10-04 07:46] VITALS: BP 113/57
[2019-10-04] MEDS: POTASSIUM CHLORIDE 10 MEQ/TAB.SA PO SCH (08:55)
[2019-10-04] MEDS ORDERED: DOCUSATE SODIUM 100 MG CAP PO SCH (09:00)
[2019-10-04] MEDS: DIVALPROEX SODIUM 250 MG TABLET.DR PO SCH (09:00)
[2019-10-04] MEDS: CALCIUM 600 + VITAMIN D 400 TABLET PO SCH (09:01)
[2019-10-04] MEDS: MIDODRINE HCL 5 MG TABLET PO SCH (09:01)
[2019-10-04] MEDS: FAMOTIDINE 20MG TAB 20 MG TAB PO SCH (09:02)
[2019-10-04] MEDS: LETROZOLE 2.5 MG PO SCH (09:02)
[2019-10-04] MEDS: FE FUMARATE/FA/MV, MIN COMB#15 1 TAB PO SCH (09:02)
[2019-10-04] MEDS: NEOMY SULF/BACITRAC ZN/POLY OINT 30GM TUBE TP SCH (09:02)
[2019-10-04 10:51] VITALS: BP 101/57
[2019-10-04] MEDS: ACETAMINOPHEN 325 MG TAB PO PRN (13:48)
[2019-10-04] MEDS: ACETAMINOPHEN-CODEINE 300/30MG TAB PO PRN (15:03)
== END 2019-10-04 15:45 | DRG 907 ==
LOC: EDH 09:56 → INTOOBSV 14:30 → EDHIP 14:30 → OBSVTOIN 14:30 → 4CH 20:42
PROVIDERS: ADMIT Internal Medicine Critical Care Medicine; ATTEND Internal Medicine Critical Care Medicine
PROC: 0JWT0PZ Revision of Cardiac Rhythm Related Device in Trunk Subcutaneous Tissue and Fascia, Open Approach (ICD-10-PCS; principal; 2019-09-30)
PROC: 0JC60ZZ Extirpation of Matter from Chest Subcutaneous Tissue and Fascia, Open Approach (ICD-10-PCS; 2019-09-30)
DX: L76.32 Postprocedural hematoma of skin and subcutaneous tissue following other procedure (principal); K76.7 Hepatorenal syndrome; D61.818 Other pancytopenia; D68.9 Coagulation defect, unspecified; I42.0 Dilated cardiomyopathy; I48.20 Chronic atrial fibrillation, unspecified; N17.9 Acute kidney failure, unspecified; N18.4 Chronic kidney disease, stage 4 (severe); D69.1 Qualitative platelet defects; I08.1 Rheumatic disorders of both mitral and tricuspid valves; I87.2 Venous insufficiency (chronic) (peripheral); K74.60 Unspecified cirrhosis of liver; Y83.1 Surgical operation with implant of artificial internal device as the cause of abnormal reaction of the patient, or of later complication, without mention of misadventure at the time of the procedure; Z85.3 Personal history of malignant neoplasm of breast; Z95.0 Presence of cardiac pacemaker; Z95.2 Presence of prosthetic heart valve; Z95.810 Presence of automatic (implantable) cardiac defibrillator; Z79.01 Long term (current) use of anticoagulants; D69.59 Other secondary thrombocytopenia; I12.9 Hypertensive chronic kidney disease with stage 1 through stage 4 chronic kidney disease, or unspecified chronic kidney disease; I87.8 Other specified disorders of veins; Z79.811 Long term (current) use of aromatase inhibitors; Z79.899 Other long term (current) drug therapy; Z80.1 Family history of malignant neoplasm of trachea, bronchus and lung; Z82.3 Family history of stroke; Z82.49 Family history of ischemic heart disease and other diseases of the circulatory system; Z83.3 Family history of diabetes mellitus; I95.89 Other hypotension; Y83.8 Other surgical procedures as the cause of abnormal reaction of the patient, or of later complication, without mention of misadventure at the time of the procedure
CPT/HCPCS: 10140; 36415; 70450; 71045; 71046; 76604; 76700; 80048; 80053; 80164; 80202; 81001; 82550; 82570; 83735; 83874; 83880; 84300; 84484; 85014; 85018; 85025; 85027; 85610; 85730; 87040; 87070; 87076; 93005; 97039; 99156; 99157; G0378; J1580; J2175; J2250; J2354; J2597; J3370; J3490; J7030

== ENCOUNTER → 2020-01-16 | Outpatient (CLI) | payer MEDICARE ==
[~2020-01-16] MED LIST changes: -Sulfamethox-Tmp Ds 800/160 Tab PO
== END | disposition home or self-care (01) ==
LOC: SHCH 13:26
PROVIDERS: ATTEND Internal Medicine Cardiovascular Disease
DX: I08.2 Rheumatic disorders of both aortic and tricuspid valves (principal); I48.20 Chronic atrial fibrillation, unspecified; I31.3 Pericardial effusion (noninflammatory)
CPT/HCPCS: 93306

== ENCOUNTER → 2020-07-04 | Outpatient (CLI) | payer MEDICARE | END | disposition home or self-care (01) | LOC: SHCH 09:29 | PROVIDERS: ATTEND Internal Medicine Cardiovascular Disease | DX: I08.3 Combined rheumatic disorders of mitral, aortic and tricuspid valves (principal); I25.119 Atherosclerotic heart disease of native coronary artery with unspecified angina pectoris; I11.9 Hypertensive heart disease without heart failure; Z95.2 Presence of prosthetic heart valve; I27.20 Pulmonary hypertension, unspecified | CPT/HCPCS: 93306 ==

== ENCOUNTER 2021-04-02 05:35 | Emergency (ER) | payer MEDICARE ==
[~2021-04-02 05:35] MED LIST changes: -CALC-1009 PO; +FURO40TA5 PO; -SPIR25TA6 PO; +WARF-57 PO; +WARF2.5T85 PO
[2021-04-02] MEDS ORDERED: HYDROCODONE/ACETAMINOPHEN 10/325 MG TAB ONE (06:24)
[2021-04-02 08:02] LABS: LYMPHOCYTES % (AUTO) 19.7 % (21.0-51.0); MEAN CORPUSCULAR HEMOGLOBIN 28.4 pg (27.0-33.0); MEAN CORPUSCULAR HGB CONC 31.3 g/dL (32.0-36.0); MEAN CORPUSCULAR VOLUME 90.6 fL (79-99); MONOCYTES % (AUTO) 17.3 % (3.0-13.0); PLATELET COUNT (AUTO) 106 K/uL (130-400); RED BLOOD CELL COUNT(AUTO) 3.42 MIL/uL (4.00-5.50); RED CELL DISTRIBUTION WIDTH 14.4 % (11.0-15.5); WHITE BLOOD COUNT (AUTO) 2.5 K/uL (4.8-10.8)
[2021-04-02 08:03] LABS: INR 1.68 (0.85-1.15); PROTHROMBIN TIME 17.5 SEC (9.6-11.6)
[2021-04-02 08:41] LABS: ALBUMIN 3.5 g/dL (3.5-5.0); BILIRUBIN,TOTAL 0.7 mg/dL (0.2-1.0); CREATININE 1.2 mg/dL (0.5-1.5); POTASSIUM 3.5 mmol/L (3.5-5.1); TOTAL PROTEIN, SERUM 6.4 g/dL (6.0-8.3)
[2021-04-02 09:02] LABS: EOSINOPHILS % (MANUAL) 2 % (1-6); LYMPHOCYTES % (MANUAL) 17 % (22-44); MAN.DIFF COMMENT-IMPRESSION MANUAL DIFFERENTIAL; MONOCYTES % (MANUAL) 10 % (2-9); SEGMENTED NEUTROPHILS % 71 % (40-70)
[2021-04-02 09:03] LABS: PLATELET MORPHOLOGY COMMENT DECREASED
[2021-04-02] MEDS ORDERED: ACET1TAB25 PO (09:44)
[2021-04-02 10:28] VITALS: BP 124/53
== END 2021-04-02 11:07 | disposition home or self-care (01) ==
LOC: EDH 05:35
DX: S20.212A Contusion of left front wall of thorax, initial encounter (principal); I25.10 Atherosclerotic heart disease of native coronary artery without angina pectoris; Z91.041 Radiographic dye allergy status; Z91.011 Allergy to milk products; Z79.899 Other long term (current) drug therapy; Z79.01 Long term (current) use of anticoagulants; X58.XXXA Exposure to other specified factors, initial encounter; Y93.89 Activity, other specified; Y92.89 Other specified places as the place of occurrence of the external cause; Y99.8 Other external cause status
CPT/HCPCS: 36415; 71101; 71250; 80053; 84484; 85025; 85610

== ENCOUNTER 2021-05-12 14:18 | Emergency (ER) | payer MEDICARE ==
[~2021-05-12] VITALS: Ht 182.9 cm; Wt 83.9 kg
[~2021-05-12 14:18] MED LIST changes: +ACET1TAB25 PO
[2021-05-12 14:20] VITALS: BP 124/54
[2021-05-12] MEDS ORDERED: CEPH500B PO (14:44)
[2021-05-12] MEDS ORDERED: ACET-2247 PO (14:44)
[2021-05-12] MEDS ORDERED: CEPHALEXIN 500 MG CAPSULE PO ONE (15:00)
[2021-05-12] MEDS ORDERED: ACETAMINOPHEN 500 MG TABLET PO ONE (15:00)
== END 2021-05-12 15:28 | disposition home or self-care (01) ==
LOC: EDH 14:18
DX: S60.562A Insect bite (nonvenomous) of left hand, initial encounter (principal); L03.114 Cellulitis of left upper limb; G40.909 Epilepsy, unspecified, not intractable, without status epilepticus; Z91.011 Allergy to milk products; Z91.041 Radiographic dye allergy status; Z79.899 Other long term (current) drug therapy; W57.XXXA Bitten or stung by nonvenomous insect and other nonvenomous arthropods, initial encounter; Y93.89 Activity, other specified; Y92.89 Other specified places as the place of occurrence of the external cause; Y99.8 Other external cause status

== ENCOUNTER 2021-08-16 12:18 | Emergency (ER) | payer MEDICARE ==
[~2021-08-16] VITALS: Ht 180.3 cm; Wt 88.0 kg
[~2021-08-16 12:18] MED LIST changes: +ACET-2079 PO; +ACET-2247 PO; -ACET1TAB25 PO; +CEPH500B PO
[2021-08-16 13:08] LABS: APPEARANCE,URINE CLEAR (CLEAR); BILIRUBIN,URINE NEGATIVE (NEGATIVE); COLOR,URINE YELLOW (YELLOW); GLUCOSE, URINE (UA) NEGATIVE (NEGATIVE); KETONES,URINE NEGATIVE (NEGATIVE); LEUKOCYTE ESTERASE ,URINE NEGATIVE (NEGATIVE); NITRATE,URINE NEGATIVE (NEGATIVE); OCCULT BLOOD,URINE NEGATIVE (NEGATIVE); PROTEIN,URINE NEGATIVE (NEGATIVE); UROBILINOGEN,URINE 0.2 mg/dL (0.2-1.0)
[2021-08-16] MEDS ORDERED: ONDANSETRON 4MG INJ IVP ONE (13:30)
[2021-08-16] MEDS ORDERED: 0.9% NACL 250ML 250 ML IV ONE (13:30)
[2021-08-16] MEDS ORDERED: MORPHINE 2 MG SYG IVP ONE (13:30)
[2021-08-16 13:36] LABS: BASOPHILS % (AUTO) 0.9 % (0.0-5.0); HEMATOCRIT 32.8 % (36-48); LYMPHOCYTES % (AUTO) 6.3 % (21.0-51.0); MEAN CORPUSCULAR HEMOGLOBIN 28.7 pg (27.0-33.0); MEAN CORPUSCULAR HGB CONC 32.3 g/dL (32.0-36.0); MEAN CORPUSCULAR VOLUME 88.9 fL (79-99); NEUTROPHILS % (AUTO) 76.6 % (40.0-77.0); PLATELET COUNT (AUTO) 105 K/uL (130-400); RED BLOOD CELL COUNT(AUTO) 3.69 MIL/uL (4.00-5.50); RED CELL DISTRIBUTION WIDTH 15.2 % (11.0-15.5); WHITE BLOOD COUNT (AUTO) 5.8 K/uL (4.8-10.8)
[2021-08-16 13:48] LABS: CREATININE 1.4 mg/dL (0.5-1.5)
[2021-08-16 13:56] LABS: B-TYPE NATRIURETIC PEPTIDE 63 pg/mL (0-100)
[2021-08-16 14:00] LABS: ALBUMIN 3.7 g/dL (3.5-5.0); BILIRUBIN,TOTAL 1.1 mg/dL (0.2-1.0); TOTAL PROTEIN, SERUM 6.9 g/dL (6.0-8.3)
[2021-08-16] MEDS ORDERED: 0.9% NACL 500ML IV.SOLN 500 ML IV ONE (14:30)
[2021-08-16 16:00] VITALS: BP 112/54
[2021-08-16] MEDS ORDERED: TRAM50TA2 PO (16:57)
== END 2021-08-16 17:50 | disposition home or self-care (01) ==
LOC: EDH 12:18
DX: R53.1 Weakness (principal); E86.0 Dehydration; M79.661 Pain in right lower leg; D64.9 Anemia, unspecified; Z88.8 Allergy status to other drugs, medicaments and biological substances; Z79.899 Other long term (current) drug therapy; Z98.890 Other specified postprocedural states
CPT/HCPCS: 36415; 71045; 80053; 81003; 83605; 83880; 84484; 85025; 87040 ×2; 87804 ×2; 93005; 93971; 96374; 96375; 99285; J2405; J7040 ×2

== ENCOUNTER 2021-09-07 14:57 | Emergency (ER) | payer MEDICARE ==
[~2021-09-07] VITALS: Ht 182.9 cm; Wt 86.2 kg
[~2021-09-07 14:57] MED LIST changes: +TRAM50TA2 PO
[2021-09-07] MEDS ORDERED: FEXO180T94 PO (15:20)
[2021-09-07] MEDS ORDERED: EPIN0.3P3 IJ (15:20)
[2021-09-07 16:00] VITALS: BP 141/52
== END 2021-09-07 15:54 | disposition home or self-care (01) ==
LOC: EDH 14:57
DX: S50.862A Insect bite (nonvenomous) of left forearm, initial encounter (principal); L03.114 Cellulitis of left upper limb; Z79.899 Other long term (current) drug therapy; Z88.8 Allergy status to other drugs, medicaments and biological substances; W57.XXXA Bitten or stung by nonvenomous insect and other nonvenomous arthropods, initial encounter; Y93.89 Activity, other specified; Y92.89 Other specified places as the place of occurrence of the external cause; Y99.8 Other external cause status
CPT/HCPCS: 99282

== ENCOUNTER 2021-11-24 13:43 | Emergency (ER) | payer MEDICARE ==
[~2021-11-24] VITALS: Ht 182.9 cm; Wt 85.3 kg
[~2021-11-24 13:43] MED LIST changes: +EPIN0.3P3 IJ; +FEXO180T94 PO
[2021-11-24 14:03] LABS: BASOPHILS % (AUTO) 0.8 % (0.0-5.0); EOSINOPHILS % (AUTO) 0.8 % (0.0-8.0); HEMATOCRIT 26.4 % (36-48); LYMPHOCYTES % (AUTO) 16.6 % (21.0-51.0); MEAN CORPUSCULAR HEMOGLOBIN 27.4 pg (27.0-33.0); MEAN CORPUSCULAR HGB CONC 31.1 g/dL (32.0-36.0); MEAN CORPUSCULAR VOLUME 88.3 fL (79-99); MONOCYTES % (AUTO) 23.8 % (3.0-13.0); NEUTROPHILS % (AUTO) 57.7 % (40.0-77.0); PLATELET COUNT (AUTO) 98 K/uL (130-400); RED BLOOD CELL COUNT(AUTO) 2.99 MIL/uL (4.00-5.50); RED CELL DISTRIBUTION WIDTH 17.3 % (11.0-15.5); WHITE BLOOD COUNT (AUTO) 3.6 K/uL (4.8-10.8)
[2021-11-24 14:22] LABS: ALBUMIN 2.9 g/dL (3.5-5.0); CREATININE 1.3 mg/dL (0.5-1.5); POTASSIUM 3.8 mmol/L (3.5-5.1); TOTAL PROTEIN, SERUM 5.9 g/dL (6.0-8.3)
[2021-11-24 14:24] LABS: B-TYPE NATRIURETIC PEPTIDE 90 pg/mL (0-100)
[2021-11-24 15:13] LABS: APPEARANCE,URINE CLEAR (CLEAR); BILIRUBIN,URINE NEGATIVE (NEGATIVE); COLOR,URINE YELLOW (YELLOW); GLUCOSE, URINE (UA) NEGATIVE (NEGATIVE); KETONES,URINE NEGATIVE (NEGATIVE); LEUKOCYTE ESTERASE ,URINE NEGATIVE (NEGATIVE); NITRATE,URINE NEGATIVE (NEGATIVE); OCCULT BLOOD,URINE NEGATIVE (NEGATIVE); PH,URINE 5.5 (5.0-8.0); PROTEIN,URINE NEGATIVE (NEGATIVE)
[2021-11-24] MEDS: DEXAMETHASONE SOD PHOSPHATE 4 MG/ML 1ML VIAL IV STA (15:41)
[2021-11-24 15:56] VITALS: BP 139/55
== END 2021-11-24 16:40 | disposition home or self-care (01) ==
LOC: EDH 13:43
DX: U07.1 COVID-19 (principal); I48.91 Unspecified atrial fibrillation; Z79.899 Other long term (current) drug therapy; Z88.8 Allergy status to other drugs, medicaments and biological substances
CPT/HCPCS: 99285; 96374; 71045; 84484; 80053; 83880; 85025; 81003; 36415; 93005; J1100

== ENCOUNTER → 2021-12-19 | Outpatient (CLI) | payer MEDICARE ==
[2021-12-19 12:23] LABS: BASOPHILS % (AUTO) 0.8 % (0.0-5.0); HEMATOCRIT 31.4 % (36-48); LYMPHOCYTES % (AUTO) 16.7 % (21.0-51.0); MEAN CORPUSCULAR HGB CONC 30.6 g/dL (32.0-36.0); MEAN CORPUSCULAR VOLUME 88.5 fL (79-99); MONOCYTES % (AUTO) 24.2 % (3.0-13.0); NEUTROPHILS % (AUTO) 53.9 % (40.0-77.0); PLATELET COUNT (AUTO) 114 K/uL (130-400); RED BLOOD CELL COUNT(AUTO) 3.55 MIL/uL (4.00-5.50); RED CELL DISTRIBUTION WIDTH 16.3 % (11.0-15.5); WHITE BLOOD COUNT (AUTO) 2.5 K/uL (4.8-10.8)
[2021-12-19 12:37] LABS: ALBUMIN 3.4 g/dL (3.5-5.0); CREATININE 1.2 mg/dL (0.5-1.5); TOTAL PROTEIN, SERUM 6.7 g/dL (6.0-8.3)
[2021-12-19 13:42] LABS: B-TYPE NATRIURETIC PEPTIDE 64 pg/mL (0-100)
[2021-12-19 14:51] LABS: EOSINOPHILS % (MANUAL) 1 % (1-6); LYMPHOCYTES % (MANUAL) 27 % (22-44); MONOCYTES % (MANUAL) 23 % (2-9); SEGMENTED NEUTROPHILS % 49 % (40-70)
[2021-12-19 14:54] LABS: MAN.DIFF COMMENT-IMPRESSION MANUAL DIFFERENTIAL
== END | disposition home or self-care (01) ==
LOC: LAB 10:00
PROVIDERS: ATTEND Physician Assistant
DX: I48.20 Chronic atrial fibrillation, unspecified (principal); I42.0 Dilated cardiomyopathy; Z79.01 Long term (current) use of anticoagulants
CPT/HCPCS: 36415; 80053; 83880; 85025